=== PATIENT | female | born 1950 | race Caucasian/White ===

== ENCOUNTER → 2017-02-21 | Outpatient (CLI) | payer MEDICARE, OTHER ==
--- NOTE | 2017-02-22 19:18 | Diagnostic Imaging Report ---
EXAMINATION: Digital Mammogram bilateral screening. INDICATION: Screening. COMPARISON: This study was compared to the prior exams of 11/24/2015 and 09/27/2014. At this time, there are no current complaints. The current study was also evaluated with a Computer Aided Detection (CAD) system. FINDINGS: The fibroglandular tissue in both breasts is dense. This does limit the sensitivity of this exam. On the MLO view of the right breast in the superior aspect of the breast, approximately 7 cm deep to the nipple, there is a strand of increased density. There is no corresponding abnormality seen on the craniocaudad view, and this finding is most likely secondary to superimposition of the fibroglandular tissue. Even so, I would recommend that a compression view of this area be obtained in the MLO projection as well as a true lateral view. If this density persists on the additional mammographic views, ultrasound may be necessary as well. The left breast is unchanged. IMPRESSION: Additional mammographic views of the right breast would be recommended. Ultrasound may also be necessary. ACR BI-RADS Category 0: Incomplete. (Needs additional imaging evaluation). Result letter will be mailed to the patient. Note: At least 10% of breast cancer is not imaged by mammography. Dictated by: Dictated on workstation # [id number]
== END ==
LOC: RAD 10:13
PROVIDERS: ATTEND Nurse Practitioner Family
DX: Z12.31 Encounter for screening mammogram for malignant neoplasm of breast (principal)
CPT/HCPCS: 77067

== ENCOUNTER → 2017-03-11 | Outpatient (CLI) | payer MEDICARE, OTHER ==
--- NOTE | 2017-03-11 09:17 | Diagnostic Imaging Report ---
Right breast diagnostic mammogram. The current study was also evaluated with a Computer Aided Detection (CAD) system. COMPARISON: 02/21/2017. FINDINGS: The breast parenchyma is heterogeneously dense which may decrease mammographic sensitivity. There are benign-appearing calcifications. No suspicious mass is seen. The previously seen asymmetry is evaluated with focal compression view which demonstrates less prominent asymmetry suggestive of summation artifact of parenchyma. IMPRESSION: The previously seen asymmetry in the upper aspect of the right breast is likely secondary to summation effect of parenchyma. Ultrasound evaluation is pending. ACR BI-RADS Category 0: Incomplete. (Needs additional imaging evaluation). Result letter will be mailed to the patient. Note: At least 10% of breast cancer is not imaged by mammography. Dictated by: Dictated on workstation # [id number]
--- NOTE | 2017-03-11 12:33 | Diagnostic Imaging Report ---
EXAM: Right breast ultrasound. INDICATION: Asymmetry along the upper aspect of the right breast. Dense breast parenchyma. TECHNIQUE: The four-quadrant retroareolar regions of the right breast were scanned. FINDINGS: At the 10 o'clock zone 7 cm from the nipple, there is a 1.3 cm lobulated hypoechoic lesion with wider than tall dimension and no internal vascularity seen. Another lesion at 6 o'clock zone, 2 cm from the nipple, measuring 1 cm with similar appearance is seen. These are from favored to be benign given the circumscribed appearance. It is possible that these represent prominent fat lobules or fibroadenomas. IMPRESSION: Likely benign lesions at 10 o'clock and at 6 o'clock zones. A 6 month followup right breast ultrasound is recommended to ensure stability. BI-RADS 3. ACR BI-RADS Category 3: Probably benign findings. Result letter will be mailed to the patient. Note: At least 10% of breast cancer is not imaged by mammography. Dictated by: Dictated on workstation # [id number]
== END ==
LOC: RAD 08:37
PROVIDERS: ATTEND Nurse Practitioner Family
DX: R92.2 Inconclusive mammogram (principal); R92.8 Other abnormal and inconclusive findings on diagnostic imaging of breast
CPT/HCPCS: 76641

== ENCOUNTER → 2017-08-30 | Outpatient (CLI) | payer MEDICARE, OTHER ==
--- NOTE | 2017-08-30 20:39 | Diagnostic Imaging Report ---
EXAM: Right breast ultrasound. INDICATION: Six month followup for lesions in the right breast. COMPARISON: 03/11/2017. FINDINGS: There is a hypoechoic nodule at the 10:00 o'clock zone, 7 cm from the nipple measuring 1.1 x 0.4 x 0.9 cm. No internal vascularity is seen. When compared to the previous exam, no significant changes are seen. At the 6:00 o'clock zone, 2 cm from the nipple, there is a hypoechoic lesion measuring 1.1 x 0.5 x 1 cm. It appears lobulated. It has slightly more heterogenous echogenicity within it and has a slightly different appearance compared to the previous exam. It is very minimally larger in measurements compared to the previous study. The findings could relate to different technique and the angle of imaging. IMPRESSION: Question of minimal enlargement in the 6:00 o'clock zone lesion with slight difference in appearance at this time. This is still favored to be benign however. Another followup in 6 months when the patient is due for her bilateral mammogram in February 2018 is recommended. BI-RADS 3. ACR BI-RADS Category 3: Probably benign findings. Result letter will be mailed to the patient. Note: At least 10% of breast cancer is not imaged by mammography. Dictated by: Dictated on workstation # [id number]
== END ==
LOC: RAD 09:46
PROVIDERS: ATTEND Nurse Practitioner Family
DX: R92.8 Other abnormal and inconclusive findings on diagnostic imaging of breast (principal)

== ENCOUNTER 2017-12-09 09:51 | Outpatient (CLI) | payer MEDICARE, OTHER ==
[~2017-12-09] VITALS: Ht 162.6 cm; Wt 107.5 kg
[2017-12-09 10:04] VITALS: BP 149/71
[2017-12-09] MEDS ORDERED: TRAM50TA2 PO (10:15)
[2017-12-09] MEDS ORDERED: CHOL20002 PO (10:15)
[2017-12-09] MEDS ORDERED: VITA1TAB33 PO (10:15)
[2017-12-09] MEDS ORDERED: ATOR10TA66 PO (10:15)
[2017-12-09] MEDS ORDERED: DULO30CA48 PO (10:15)
[2017-12-09] MEDS ORDERED: LISI-552 PO (10:15)
[2017-12-09 10:50] LABS: BASOPHILS % (AUTO) 1 % (0-10); EOSINOPHILS # (AUTO) 0.1 10^3/uL (0.0-0.3); EOSINOPHILS % (AUTO) 3 % (0-10); HEMATOCRIT 41 % (35-52); HEMOGLOBIN 13.9 G/DL (11.5-16.0); LYMPHOCYTES # (AUTO) 1.1 X 10^3 (1.0-4.0); LYMPHOCYTES % (AUTO) 28 % (12-44); MEAN CORPUSCULAR HEMOGLOBIN 28 PG (25-34); MEAN CORPUSCULAR HGB CONC 34 G/DL (32-36); MEAN CORPUSCULAR VOLUME 84 FL (80-99); MEAN PLATELET VOLUME 10.4 FL (7.4-10.4); MONOCYTES # (AUTO) 0.3 X 10^3 (0.0-1.0); MONOCYTES % (AUTO) 8 % (0-12); NEUTROPHILS # (AUTO) 2.5 X 10^3 (1.8-7.8); NEUTROPHILS % (AUTO) 60 % (42-75); PLATELET COUNT 152 10^3/uL (130-400); RED BLOOD COUNT 4.91 10^6/uL (4.35-5.85); RED CELL DISTRIBUTION WIDTH 15.2 % (10.0-14.5); WHITE BLOOD COUNT 4.1 10^3/uL (4.3-11.0)
[2017-12-09 10:51] LABS: BILIRUBIN,URINE NEGATIVE (NEGATIVE); CLARITY,URINE CLEAR; COLOR,URINE YELLOW; GLUCOSE, URINE (UA) NEGATIVE (NEGATIVE); KETONES,URINE NEGATIVE (NEGATIVE); LEUKOCYTE ESTERASE ,URINE 1+ (NEGATIVE); NITRITE,URINE NEGATIVE (NEGATIVE); PH,URINE 5 (5-9); PROTEIN,URINE NEGATIVE (NEGATIVE); UROBILINOGEN,URINE NORMAL (NORMAL)
[2017-12-09 11:10] LABS: PROTHROMBIN TIME PATIENT 13.4 SEC (12.2-14.7)
[2017-12-09 11:10] LABS: BACTERIA,URINE FEW /HPF
[2017-12-09 11:13] LABS: ALBUMIN 4.3 GM/DL (3.2-4.5); BILIRUBIN,TOTAL 0.7 MG/DL (0.1-1.0); CALCIUM 9.7 MG/DL (8.5-10.1); CREATININE SERUM 0.99 MG/DL (0.60-1.30); POTASSIUM 3.9 MMOL/L (3.6-5.0); TOTAL PROTEIN 7.5 GM/DL (6.4-8.2)
[2017-12-09 11:27] LABS: ERYTHROCYTE SEDIMENTATION RATE 17 MM/HR (0-30)
--- NOTE | 2017-12-09 11:49 | Diagnostic Imaging Report ---
INDICATION: Preop for total knee replacement. TIME OF EXAM: 11:10 AM FINDINGS: The heart size is normal. The lungs are clear. No pleural effusion or pneumothorax is identified. The pulmonary vascularity is normal. IMPRESSION: No acute abnormality detected. Dictated by: Dictated on workstation # [id number]
== END 2017-12-09 10:55 | disposition home or self-care (01) ==
LOC: PREOP 09:51
PROVIDERS: ATTEND Orthopaedic Surgery
DX: Z01.810 Encounter for preprocedural cardiovascular examination (principal); Z01.811 Encounter for preprocedural respiratory examination; Z01.812 Encounter for preprocedural laboratory examination; Z11.2 Encounter for screening for other bacterial diseases; M17.11 Unilateral primary osteoarthritis, right knee; R53.83 Other fatigue; R82.90 Unspecified abnormal findings in urine
CPT/HCPCS: 36415; 71046; 80053; 81000; 85025; 85610; 85652; 86850; 86900; 86901; 87081; 87088; 93005

== ENCOUNTER 2017-12-21 06:04 | Inpatient (IN) | payer MEDICARE, OTHER ==
--- NOTE | 2017-12-13 10:06 | HISTORY AND PHYSICAL ---
DATE OF SERVICE: DATE OF ADMISSION: 12/21/2017. HISTORY OF PRESENT ILLNESS: The patient is a 67-year-old female with complaints of progressively worsening right knee pain. She reports difficulty with standing. She reports difficulty with functional activities. She reports this has been progressive in nature. She has tried rest, activity modifications and anti-inflammatories without relief. Radiographs reveal severe medial patellofemoral arthrosis and due to failure to improve with conservative measures, the patient has elected to proceed with surgical intervention. REVIEW OF SYSTEMS: No chest pain, no shortness of breath, no dysuria. PAST MEDICAL HISTORY: Depression, hypertension, osteoarthritis. PAST SURGICAL HISTORY: Hysterectomy, cholecystectomy. FAMILY HISTORY: Significant for kidney disease, cancer. PRIMARY CARE PROVIDER: Dr. Rincon. MEDICATIONS: Vitamins, tramadol, Lipitor, Voltaren, lisinopril, Zoloft. ALLERGIES: No known drug allergies. SOCIAL HISTORY: The patient denies alcohol and tobacco use. PHYSICAL EXAMINATION: GENERAL: The patient is well developed, well-nourished, in no acute distress. HEENT: Normocephalic, atraumatic. Pupils are equal, round, reactive to light. Oropharynx is clear. NECK: Supple, no lymphadenopathy. LUNGS: Clear to auscultation bilaterally. HEART: Regular rate and rhythm. ABDOMEN: Soft, nontender, nondistended. EXTREMITIES: The right knee demonstrates mild varus alignment. No skin lesions are noted. She has negative straight leg raise. Sensation is intact throughout. She has no varus valgus laxity. Negative anterior and posterior drawer. Range of motion 0/3/125. She has slight effusion. She has marked tenderness along the medial joint line with crepitus in her patellofemoral joint space. She ambulates with an antalgic gait. IMPRESSION: Right knee severe osteoarthritis, unresponsive to conservative measures. PLAN: Right total knee arthroplasty. The risks, benefits, options, ramifications and recovery had been discussed at length with the patient. She understands and wishes to proceed. Job ID: [id number] DocumentID: [id number] Dictated Date: 12/13/2017 09:21:40 Lunchroom Aide Date: 12/13/2017 09:58:58 Dictated By: MYRON JACOB MD
[~2017-12-21] VITALS: Ht 162.6 cm; Wt 107.5 kg
[~2017-12-21 06:04] MED LIST: ATOR10TA66 PO; CHOL20002 PO; DULO30CA48 PO; LISI-552 PO; TRAM50TA2 PO; VITA1TAB33 PO
[2017-12-21] MEDS ORDERED: ONDANSETRON 4 MG/2 ML (SDV) Z0FRAN ONE (06:30)
[2017-12-21] MEDS ORDERED: fentaNYL INJECTION 100 MCG/2 ML AMP ONE ×2 (06:30→08:02)
[2017-12-21] MEDS ORDERED: proPOfol 200 MG/20 ML (DIPRIVAN) VIAL IV ONE (06:30)
[2017-12-21] MEDS ORDERED: DEXAMETHASONE 10 MG/ML (DECADRON) 1 ML VIAL ONE (06:30)
[2017-12-21] MEDS ORDERED: MIDAZOLAM 2 MG/2 ML (VERSED) VIAL ONE (06:30)
[2017-12-21] MEDS ORDERED: LIDOCAINE PF 2% 5 ML (XYLOCAINE) VIAL ONE (06:30)
[2017-12-21] MEDS ORDERED: SEVOFLURANE (ULTANE) 15 ML INHAL SOLN ONE ×6 (06:30→08:50)
[2017-12-21] MEDS ORDERED: CEFUROXIME 1.5 GM (ZINACEF) VIAL ONE (06:31)
[2017-12-21] MEDS ORDERED: NS (IVPB) 50 ML ONE (06:32)
[2017-12-21] MEDS ORDERED: ATRACURIUM 50 MG/5 ML (TRACRIUM) IV ONE (06:47)
[2017-12-21] MEDS: LACTATED RINGERS 1,000 ML IV PRN ×3 (06:57→09:05)
[2017-12-21] MEDS ORDERED: CEFUROXIME IV ONE (07:00)
[2017-12-21] MEDS ORDERED: D5W IV ONE (07:00)
[2017-12-21] MEDS ORDERED: CATHETER FLUSH 10 ML SYR IV PRN (07:00)
[2017-12-21] MEDS ORDERED: CEFUROXIME 1.5 GM/NS 50 ML IVPB IV ONE ×2 (07:00)
[2017-12-21 07:06] VITALS: BP 139/80
--- NOTE | 2017-12-21 07:28 | Progress Note-Pre Operative ---
Pre-Operative Progress Note H&P Reviewed The H&P was reviewed, patient examined and no changes noted. Date Seen by Provider: Dec 21, 2017 Time Seen by Provider: 07:20 Date H&P Reviewed: Dec 21, 2017 Time H&P Reviewed: 07:11 Pre-Operative Diagnosis: right knee primary osteoarthritis MYRON JACOB MD Dec 21, 2017 07:28
--- NOTE | 2017-12-21 07:29 | Progress Note-Post Operative ---
Post-Operative Progess Note Surgeon (s)/Superintendent Factory (s) Surgeon MYRON JACOB MD Superintendent Factory: Nicholas Conklin Pre-Operative Diagnosis right knee primary osteoarthritis Post-Operative Diagnosis right knee primary osteoarthritis Procedure & Operative Findings Date of Procedure 12/21/17 Procedure Performed/Findings right total knee arthroplasty Anesthesia Type GETA Estimated Blood Loss Estimated blood loss (mL): 300 ml Specimens/Packing Specimens Removed none Packing: none MYRON JACOB MD Dec 21, 2017 07:29
[2017-12-21] MEDS ORDERED: INTRA-ARTICULAR IU ONE ×5 (07:30)
[2017-12-21] MEDS ORDERED: diphenhydrAMINE 50 MG/ML INJ (BENADRYL) IVP PRN (07:30)
[2017-12-21] MEDS ORDERED: ACETAMINOPHEN 325 MG TABLET/CAPLET (TYLENOL) PO PRN (07:30)
[2017-12-21] MEDS ORDERED: OXYC-197 PO (07:31)
--- NOTE | 2017-12-21 07:33 | D/C HH Face to Face Order ---
D/C Face to Face Orders Instructions for Patient Patient Instructions/FollowUp: three weeks Physician to follow Patient: in three weeks Discharge Diet for Home: Regular Diet Patient Data-Allergies,Ht & Wt Patient Allergies: Coded Allergies: No Known Drug Allergies (Unverified , 12/09/17) Height (Feet): 5 Height (Inches): 4.00 Weight (Pounds): 237 Weight (Ounces): 0.0 Home Health Need/Face to Face Date of Face to Face: Dec 21, 2017 Clinical Findings: Instability, Muscle weakness, Non or partial weight bearing , Unsteady gait I have seen Pt [id number]: Yes Discharged To: Home Diagnosis/Conditions: right total knee arthroplasty Problems/Diagnosis/Condition: Patient is Homebound due to: Ellie fall risk due to instabilty, Muscle weakness , Pain w/ambulation Homebound Status Due to the above stated illness, injury or surgical procedure (medical condition or diagnosis) and associated clinical findings, the patient is homebound because of his/her inability to leave home except with aid of a supportive device and/or person AND leaving the home requires a considerable and taxing effort or is medically contraindicated. Pt req the following assistanc: Walker Home Health Nursing Orders Home Health Services Order: Physical Therapy-Evaluate & Treat Home Health Infusion Therapy Line Start Date: Dec 21, 2017 Line Start Time: 0630 Site Location: Forearm Therapy Orders Therapy Orders: Physical Therapy, PT to assess for OT Therapy Specific Orders: Eval assistive deivces, Teach enviro modifications/ safety, Gait training, Increase strength/endurance, Restore ROM Certify Stmt I certify that this patient is under my care and that I, a nurse practitioner or a physician; a elder assistant working with me, had a face to face encounter that - meets the physician face to face encounter requirements with this patient as dated. MYRON JACOB MD Dec 21, 2017 07:33
[2017-12-21] MEDS ORDERED: morphine INJ 10 MG/ML 1ML (SYR OR VIAL) ONE (09:06)
[2017-12-21] MEDS ORDERED: HYDROmorphone (DILAUDID) 2 MG/ML VIAL ONE (09:24)
[2017-12-21] MEDS: HYDROmorphone (DILAUDID) 2 MG/ML VIAL IVP PRN ×4 (09:25→09:50)
[2017-12-21] MEDS: morphine INJ 10 MG/ML 1ML (SYR OR VIAL) IVP PRN ×2 (09:32→09:36)
--- NOTE | 2017-12-21 10:06 | Diagnostic Imaging Report ---
Indication: Postop right knee arthroplasty. TIME OF EXAM: 9:45 AM FINDINGS: Two views of the right knee demonstrate postop changes of total knee arthroplasty. Prosthetic elements are in good position. No fracture or loosening is seen. Overlying skin torsten are noted. IMPRESSION: Satisfactory postop right knee. Dictated by: Dictated on workstation # [id number]
--- NOTE | 2017-12-21 10:11 | Progress Note-Standard ---
Standard Progress Note Progress Notes/Assess & Plan Date Seen by Provider: Dec 21, 2017 Time Seen by Provider: 10:10 Progress/Assessment & Plan post op check no complaints. denies paresthesias radiographs--HW well positioned without fracture RLE--2 plus DP pulse with brisk cap refill. intact DF and PF of toes and ankle with sensation intact throughout s/p RTKA mobilize as able Final Diagnosis right knee primary osteoarthritis MYRON JACOB MD Dec 21, 2017 10:11
[2017-12-21] MEDS ORDERED: ONDANSETRON 4 MG/2 ML (SDV) Z0FRAN IVP PRN (10:15)
[2017-12-21 11:00] VITALS: BP 123/59
[2017-12-21] MEDS: morphine PCA 30 MG/30 ML VIAL IV PRN (11:01)
[2017-12-21] MEDS: ONDANSETRON 4 MG/2 ML (SDV) Z0FRAN IVP PRN ×2 (11:48→15:29)
[2017-12-21] MEDS: NS IV 1000 ML 1,000 ML IV SCH ×2 (11:53→15:29)
[2017-12-21] MEDS: SENNA W/DOCUSATE (SENOKOT S) TABLET PO SCH ×2 (11:53→20:06)
--- NOTE | 2017-12-21 15:29 | Physical Therapy Evaluation ---
PT Evaluation-General Medical Diagnosis Admission Date Dec 21, 2017 at 06:04 Medical Diagnosis: R TKA Onset Date: Dec 21, 2017 Therapy Diagnosis Therapy Diagnosis: Poor activity tolerance, ROM, weakness, mobility Height/Weight Height (Feet): 5 Height (Inches): 4.00 Weight (Pounds): 237 Weight (Ounces): 0.0 Precautions Precautions/Isolations: Fall Prevention, Standard Precautions Weight Bear Status Right Lower Extremity: Right Full Weight Bearing Left Lower Extremity: Left Full Weight Bearing Referral Physician: Nicholas Conklin Reason for Referral: Evaluation/Treatment Medical History Pertinent Medical History: HTN, OA Additional Medical History Depression Surgery: hysterectomy, cholecystectomy Current History Pt elected to receive R TKA. Reviewed History: Yes Social History Home: Single Level Current Living Status: Spouse Entry Into Home: Stairs With Railing PT Steps Into Home: 2 Prior/Core FIM Prior Level of Function Functional [place] Measure 0=Not Assessed/NA 4=Minimal Assistance 1=Total Assistance 5=Supervision or Setup 2=Maximal Assistance 6=Modified [place] 3=Moderate Assistance 7=Complete [place] Bed Mobility: 7 Transfers (B,C,W/C) (FIM): 7 Gait: 7 Locomotion: 7 PT Evaluation-Current Subjective Pt is laying in bed pre eval and c/o pain at 10/10 with no visual signs of distress. Pt agrees to PT. Pain Numeric Pain Scale: 10-Worst Possible Pain Location: Right Location Body Site: Knee Pt/Family Goals [place] at home Objective Patient Orientation: Person, Place, Situation Attachments: SCD's, Oxygen (4 L), Polar Pack, IV ROM/Strength ROM Lower Extremities RLE Knee flexion ~ 90 degrees, knee extension ~ 10 degrees from neutral Strength Lower Extremities NT Neuromuscular (Tone, Coordination, Reflexes) NT Sensory Vision: Wears Glasses Hearing: Functional Sensation Right Lower Extremit: Intact Sensation Left Lower Extremity: Intact Transfers Functional [place] Measure 0=Not Assessed/NA 4=Minimal Assistance 1=Total Assistance 5=Supervision or Setup 2=Maximal Assistance 6=Modified [place] 3=Moderate Assistance 7=Complete [place] Transfers (B, C, W/C) (FIM): 4 Scootin Rollin Supine to/from Sit: 4 Sit to/from Stand: 4 Patient performs supine to sit with min assist, sit to stand with CGA, patient needs cues for safety and hand placement Gait Mode of Locomotion: Walk Anticipated Mode of Locomotion: Walk Gait (FIM): 1 Distance: 20 feet Gait Level of Assist: 4 Gait Persons Needed: 1 Gait Assistive Device: FWW Comments/Gait Description Pt has diminished stance phase on the RLE due to pain and weakness. Step-to gait pattern even with cues, very antalgic. Patient got nauseated during ambulation and was able to make it back to the bed before vomiting. Balance Sitting Static: Normal Sitting Dynamic: Normal Standing Static: Normal Standing Dynamic: Normal Treatment Pt performed bed mobility, functional mobility, sensation testing, and gait training. RLE: SAQ: 10 x1, Ankle pumps: 10 x1, SLR: 10 x1, Heel slides: 10 x1 Assessment/Needs Pt reports pain at 10/10 with no visual signs of distress. Pt demonstrates decreased ROM in the R knee. Pt was able to walk 20 feet with FWW and CGA. Pt reported dizziness during immediate standing and sitting. Pt vomited after ambulating 20 feet. Pt incision site bandage is saturated with blood. Nurse has been notified. Pt demonstrated knowledge and tolerance of LE exercises. Pt returned to laying in bed with SCDs and CPM on as well as O2 and polar care. Rehab Potential: Fair Equipment Needs FWW PT Short Term Goals Short Term Goals Time Frame: Dec 28, 2017 Transfers (B,C,W/C) (FIM): 5 Gait (FIM): 2 Gait Distance Comment: 50' Gait Level of Assist: 4 Gait Assistive Device: FWW PT Plan Problem List Problem List: Activity Tolerance, Functional Strength, Safety, Balance, Gait, Transfer, Bed Mobility, ROM Treatment/Plan Treatment Plan: Continue Plan of Care Treatment Plan: Bed Mobility, Education, Functional Activity [place], Functional Strength, Gait, Safety, Therapeutic Exercise, Transfers Treatment Duration: Dec 28, 2017 Frequency: 11 times per week Estimated Hrs Per Day: .25 hour per day (15-30 min) Patient and/or Family Agrees t: Yes Safety Risks/Education Patient Education: Gait Training, Transfer Techniques, Reviewed Precautions, Reviewed Use of Ice, Correct Positioning, Disease Process, Safety Issues Teaching Recipient: Patient Teaching Methods: Demonstration, Discussion Response to Teaching: Reinforcement Needed Discharge Recommendations Plan Patient will perform bed mobility and transfer training, balance and endurance training, functional strengthening, stair training, gait training, and education , to improve functional mobility and independence at home. Therapy D/C Recommendations: Home w/ Family Support Equpiment Recommendations-D/C: Front Wheeled Walker Time/GCodes Time In: 1500 Time Out: 1530 Total Billed Treatment Time: 30 Total Billed Treatment 1 visit CHRISTOPHER 15' GT 15' LIZETT CASIANO PT Dec 21, 2017 15:29
[2017-12-21 15:55] VITALS: BP 113/52
[2017-12-21] MEDS: CEFUROXIME INJECTION 750 MG in NS (IVPB) 50 ML IV SCH ×2 (16:02→22:55)
--- NOTE | 2017-12-21 19:21 | OPERATIVE REPORT ---
DATE OF SERVICE: 12/21/2017 PREOPERATIVE DIAGNOSIS: Right knee primary osteoarthritis. POSTOPERATIVE DIAGNOSIS: Right knee primary osteoarthritis. PROCEDURE: Right total knee arthroplasty. SURGEON: Boogie Jacob MD. ACADEMIC AFFAIRS DEAN: SHORTY Reeves, who assisted throughout the procedure and closed the incisions. ANESTHESIA: General endotracheal by Dr. Calle. TOURNIQUET TIME: Approximately 70 minutes at 325 mmHg. ESTIMATED BLOOD LOSS: 300 mL. DRAINS: None. COMPLICATIONS: None. POSTOPERATIVE PLAN: Routine protocol. MATERIALS: MicroPort cemented size 4 femur with a cemented size 5 tibia and a 14 mm insert and a cemented size 32 patellar button. STATEMENT OF MEDICAL NECESSITY: The patient is a 67-year-old female with longstanding progressive right knee pain. Radiographs revealed severe medial and patellofemoral arthrosis. She has undergone treatment with extensive conservative modalities without relief and due to functional impairment and failure to improve with conservative measures, the patient elected to proceed with surgical intervention. DESCRIPTION OF PROCEDURE: After risks and benefits of the procedure were discussed and questions were answered, an informed consent was signed and placed on chart. The operative site was confirmed in the preoperative holding area initialed by surgeon. The patient was then transported to the operating room. General endotracheal anesthetic was obtained. A timeout was called confirming the operative site. The left lower extremity was then prepped and draped in the usual sterile fashion with the leg elevated and the knee flexed. The tourniquet was inflated to 300 mmHg. A standard anterior approach was utilized. Hemostasis was obtained with cautery. A medial parapatellar arthrotomy was performed leaving 1 cm cuff on the patella for later reattachment. The ACL was resected and a portion of the fat pad was resected. A subperiosteal release was performed on the proximal medial tibia being careful to stay on the bony surface. Intramedullary guide was passed into the femur. The distal cutting block was placed and distal cut was made. There was noted to be bleeding and her blood pressure was noted to be 155 mmHg systolic. Therefore, the tourniquet was inflated to 325 mmHg, which decreased the bleeding. The 4 cutting block was placed parallel to the epicondylar axis and cuts were made from posterior to anterior. A subperiosteal release was then carefully performed on the posterior distal femur, being careful to stay on the bony surface. Intramedullary guide was then passed into the tibia. The cutting block was placed. The drop tristen transected the intermalleolar axis and the cut was made. The 5 baseplate was placed, pinned into position. The drop tristen transected the intermalleolar axis. This was prepared with the drill and keel punch. The 4 femoral trial was placed and the trochlear cut was made. The patella was then prepared using the free hand technique by resecting 10 mm off the undersurface and the peg guide was placed and the peg holes were drilled. The trials were inserted, 32 mm patellar button with a 14 mm tibial insert provided full extension. The patella tracked well. There was no varus/valgus laxity in flexion or extension. Greater than 120 degrees of flexion was obtained with gravity. Her flexion was blocked by her posterior thigh soft tissues. The trials were removed. The joint was irrigated with pulse lavage. The periarticular block was placed and the posterior capsule, medial and lateral retinaculum and extensor mechanism as well as the subcutaneous tissues. The joint was further irrigated with pulse lavage. Bone ends were irrigated and dried. The tibial baseplate was cemented into position. Excessive cement was removed. The superior surface was irrigated and dried. The polyethylene insert was placed. The distal femur was irrigated and dried. The femoral prosthesis was cemented into position. Excessive cement was removed. The knee was brought out in full extension until the cement cured. The undersurface of the toes irrigated and dried. The patellar button was cemented into position as well. Once the cement had cured, knee was taken through range of motion. The patella tracked well. Full extension was easily obtained, 120 degrees of flexion with gravity was easily obtained. There was trace anterior drawer, negative posterior drawer. No varus valgus laxity in flexion or extension. The joint was further irrigated with pulse lavage. The arthrotomy was closed with #2 [place] in [id number] interrupted fashion. The knee was flexed. The patella tracked well with no undue tension. At the repair site, subcutaneous tissues were irrigated using a total of 6 liters throughout the procedure. A 0 Vicryl was used for deep subcutaneous tissue, 2-0 Vicryl for the superficial subcutaneous tissue, torsten used on the skin. A soft dressing was applied. The tourniquet was deflated. The patient was transferred to the recovery room awake in stable condition. Job ID: [id number] DocumentID: [id number] Dictated Date: 12/21/2017 09:21:46 Camera Repairman Date: 12/21/2017 19:21:16 Dictated By: BOOGIE JACOB MD
[2017-12-21 20:00] VITALS: BP 125/56
[2017-12-21] MEDS: oxyCODONE/APAP 5/325MG (PERCOCET 5) TABLET PO PRN (22:55)
[2017-12-22] VITALS: BP 153/71
[2017-12-22] MEDS: oxyCODONE/APAP 5/325MG (PERCOCET 5) TABLET PO PRN ×8 (02:17→20:20)
[2017-12-22] MEDS: morphine PCA 30 MG/30 ML VIAL IV PRN (02:18)
[2017-12-22 04:00] VITALS: BP 146/70
[2017-12-22] MEDS: MULTIVIT W/MINERALS TAB (THERAGRAN M) PO SCH (05:30)
[2017-12-22] MEDS: NS IV 1000 ML 1,000 ML IV SCH ×2 (05:31→17:50)
[2017-12-22 07:01] LABS: HEMOGLOBIN 9.8 G/DL (11.5-16.0)
--- NOTE | 2017-12-22 07:55 | Progress Note-Standard ---
Standard Progress Note Progress Notes/Assess & Plan Date Seen by Provider: Dec 22, 2017 Time Seen by Provider: 07:53 Progress/Assessment & Plan post op check no complaints. denies paresthesias radiographs--HW well positioned without fracture RLE--2 plus DP pulse with brisk cap refill. intact DF and PF of toes and ankle with sensation intact throughout s/p RTKA mobilize as able Final Diagnosis No new complaints Vital Signs Date Time Temp Pulse Resp B/P (MAP) Pulse Ox O2 Delivery O2 Flow Rate FiO2 12/22/17 04:00 98.2 64 18 146/70 (95) 99 Nasal Cannula 2.00 12/22/17 02:43 92 Nasal Cannula 2.00 12/22/17 02:18 20 12/22/17 02:18 20 12/22/17 00:00 97.3 77 17 153/71 (98) 99 Nasal Cannula 4.00 12/21/17 21:25 Nasal Cannula 4.00 12/21/17 20:10 97 Nasal Cannula 4.00 12/21/17 20:00 96.8 69 20 125/56 (79) 95 Nasal Cannula 4.00 12/21/17 15:55 96.6 84 18 113/52 (72) 93 Nasal Cannula 4.00 12/21/17 15:48 Nasal Cannula 2.00 12/21/17 11:01 16 12/21/17 11:00 96.1 84 20 123/59 (80) 91 Nasal Cannula 4.00 12/21/17 10:45 97 Nasal Cannula 2.00 I & O 12/22/17 07:00 Intake Total 4290 ml Output Total 550 ml Balance 3740 ml Laboratory Tests Test 12/22/17 06:46 Range/Units Hemoglobin 9.8 L 11.5-16.0 G/DL Hematocrit 30 L 35-52 % RLE--dressing intact. NVI distally. No calf tenderness. Neg Des's s/p RTKA doing well mobilize MYRON JACOB MD Dec 22, 2017 07:55
[2017-12-22 08:15] VITALS: BP 109/55
[2017-12-22] MEDS ORDERED: ASPIRIN E.C. 81 MG (ECOTRIN) TAB PO SCH (08:15)
--- NOTE | 2017-12-22 08:39 | Consultation ---
History of Present Illness History of Present Illness Patient Consulted On(aury/time) 12/22/17 08:39 Date Seen by Provider: Dec 22, 2017 Time Seen by Provider: 08:50 Reason for Visit: RIGHT KNEE ARTHRITIS - HOSPITALIZED FOR KNEE REPLACEMENT History of Present Illness PT IS A 67 Y/O FEMALE WHO IS KNOWN TO ME FROM CLINIC. SHE PRESENTED TO THE HOSPITAL FOR A PLANNED RIGHT KNEE REPLACEMENT WITH DR. JACOB SURGEON. SHE HAD HER KNEE REPLACEMENT ON 12/21/17. SHE STATES THAT THIS MORNING SHE IS DOING FAIRLY WELL, A LITTLE GROGGY/DIZZY FROM HER PAIN MEDICATION, BUT SHE THINKS THAT THE PAIN MEDICATION IS HELPING TO COVER HER PAIN FAIRLY WELL. SHE REPORTS GETTING UP WITH PHYSICAL THERAPY AND WALKING IN HER ROOM AND GETTING UP AND DOWN FROM THE BED TO THE COMMODE AND TO THE BEDSIDE CHAIR. SHE DENIES CHEST PAIN, SHORTNESS OF BREATH, ABDOMINAL PAIN, NAUSEA, CONSTIPATION , HEADACHE, URINARY DIFFICULTY. Allergies and Home Medications Allergies Coded Allergies: No Known Drug Allergies (Unverified , 12/09/17) Home Medications Atorvastatin Calcium 10 Mg Tablet, 10 MG PO HS, (Reported) B Complex with Vitamin C 1 Each Tablet, 1 EACH PO DAILY@1200, (Reported) Cholecalciferol (Vitamin D3) 2,000 Unit Capsule, 2,000 UNIT PO HS, (Reported) Duloxetine HCl 30 Mg Capsule.dr, 30 MG PO HS, (Reported) Lisinopril 20 Mg Tablet, 20 MG PO HS, (Reported) Oxycodone HCl/Acetaminophen 1 Each Tablet, 1 EACH PO Q4H, #60 Prescribed by: MYRON JACOB on 12/21/17 0731 Tramadol HCl 50 Mg Tablet, 50-100 MG PO Q6H PRN for PAIN-MILD, (Reported) take 1-2 (50mg) tabs Past Vfssbep-Ctyaun-Plzjpr Hx Patient Social History Alcohol Use: Denies Use Recreational Drug Use: No Smoking Status: Never a Smoker 2nd Hand Smoke Exposure: No Recent Foreign Travel: No Contact w/Someone Who Travel: No Recent Infectious Disease Expo: No Recent Hopitalizations: No Immunizations Up To Date Date of Influenza Vaccine: Nov 08, 2017 Seasonal Allergies Seasonal Allergies: No Surgeries History of Surgeries: Yes Respiratory History of Respiratory Disorde: No Cardiovascular History of Cardiac Disorders: Yes Cardiac Disorders: High Cholesterol, Hypertension Neurological History of Neurological Disord: No Reproductive System : No Hx Reproductive Disorders: No HIV/AIDS: No Female 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 Genitourinary History of Genitourinary Disor: Yes (URINE LEAKAGE) Gastrointestinal History of Gastrointestinal Di: No Musculoskeletal History of Musculoskeletal Dis: Yes Musculoskeletal Disorders: Arthritis Endocrine History of Endocrine Disorders: No HEENT History of HEENT Disorders: Yes (GLASSES, DENTURES) Loss of Vision: Bilateral Hearing Impairment: Denies Cancer History of Cancer: No Psychosocial History of Psychiatric Problem: Yes Behavioral Health Disorders: Depression Integumentary History of Skin or Integumenta: No Blood Transfusions History of Blood Disorders: No Reviewed Nursing Assessment Reviewed/Agree w Nursing PMH: Yes Family Medical History Significant Family History: Heart Disease, Cancer Family Medial History: Myocardial infarction 19 MOTHER Respiratory disorder 19 FATHER (lung cancer) G8 BROTHER (lung cancer) Review of Systems-General Constitutional: No chills, dizziness, No fever, No malaise, weakness EENTM: No mouth pain, No throat pain Respiratory: No cough, No dyspnea on exertion, No short of breath Cardiovascular: No chest pain, No edema, No palpitations Gastrointestinal: No abdominal pain, No constipation, No diarrhea, No nausea, No vomiting Genitourinary: No frequency Musculoskeletal: No back pain, other (RIGHT KNEE PAIN) Skin: no symptoms reported Psychiatric/Neurological: Denies Anxiety, Depressed All Other Systems Reviewed Negative Unless Noted: Yes Physical Exam-General Problems Physical Exam Vital Signs Vital Sign - Last 12Hours 12/21/17 12/21/17 07:06 10:45 Temp 97.1 Pulse 77 Resp 16 B/P (MAP) 139/80 (99) Pulse Ox 97 O2 Delivery Room Air O2 Flow Rate 2.00 Capillary Refill : General Appearance: WD/WN, no apparent distress Eyes: Bilateral Eye Normal Inspection, Bilateral Eye PERRL, Bilateral Eye EOMI HEENT: PERRL/EOMI, pharynx normal Neck: non-tender, supple Respiratory: chest non-tender, lungs clear, normal breath sounds, no respiratory distress, no accessory muscle use Cardiovascular: regular rate, rhythm, no edema Gastrointestinal: normal bowel sounds, non tender, soft, no organomegaly, no pulsatile mass Back: normal inspection Extremities: no pedal edema, other (RIGHT KNEE WITH SURGICAL DRESSING IN PLACE , BLOOD ON DRESSING, POLAR PACK IN PLACE) Neurologic/Psychiatric: veneer taping machine offbearer II-XII nml as tested, alert, normal mood/affect, oriented x 3 Skin: warm/dry Lymphatic: no adenopathy Assessment/Plan Assessment/Plan Admission Diagnosis/Plan RIGHT KNEE OSTEOARTHRITIS RIGHT KNEE PAIN HYPERTENSION HYPERLIPIDEMIA DEPRESSION RIGHT KNEE OSTEOARTHRITIS AND RIGHT KNEE PAIN - PT IS POST OP DAY #1 - PT DOING WELL WITH THERAPY - CONTINUE WITH THE PLANS FOR TWO MORE DAYS OF HOSPITALIZATION AND DISCHARGE ON TUESDAY WITH HOME HEALTH. HYPERTENSION - RESUME LISINOPRIL, MONITOR BLOOD PRESSURE HYPERLIPIDEMIA - STABLE, RESUME HOME STATIN THERAPY. DEPRESSION -CHRONIC - SITUATIONAL - CONTINUE WITH CYMBALTA FOR TREATMENT OF DEPRESSION. DVT PROPHYLAXIS WITH LOVENOX ANEMIA - CHECK CBC TOMORROW THANK YOU FOR THE CONSULTATION. Clinical Quality Measures DVT/VTE Risk/Contraindication: Risk Factor Score Per Nursin RFS Level Per Nursing on Admit: 4+=Very High NIRMALA RAMIRES MD Dec 22, 2017 08:39
[2017-12-22] MEDS: SENNA W/DOCUSATE (SENOKOT S) TABLET PO SCH ×2 (08:55→20:20)
[2017-12-22] MEDS: ENOXAPARIN 30 MG/0.3 ML (LOVENOX) SYR SC SCH ×2 (08:55→20:19)
--- NOTE | 2017-12-22 09:48 | Physical Therapy Daily Note ---
PT Daily Note-Current Subjective Patient c/o 5/10 right knee pain at rest. RN just issued pain medication at 745. Pain Numeric Pain Scale: 5-Moderate Pain Location: Right Location Body Site: Knee Pain Description: Acute Mental Status Patient Orientation: Normal For Age Attachments: IV Transfers Functional [place] Measure 0=Not Assessed/NA 4=Minimal Assistance 1=Total Assistance 5=Supervision or Setup 2=Maximal Assistance 6=Modified [place] 3=Moderate Assistance 7=Complete IndependenceIRFPAI Quality Coding Scale 6 Independent with activity with or without an assistive device 5 Patient requires set up or clean up by helper. Patient completes activity by themselves 4 Supervision or touching assist (CGA). [place] provide cues , steadying assist 3 The helper provides less than half the effort to complete the activity 2 The helper provides more than half the effort to complete the activity 1 Dependent. The helper does all the effort to complete an activity 7 Patient refused to complete or attempt activity 9 The patient did not perform the activity before the current illness or injury 88 Not attempted due to Medical conditions or safety concerns Transfers (B, C, W/C) (FIM): 5 Scootin Sit to/from Stand: 5 Weight Bearing Right Lower Extremity: Right Full Weight Bearing Left Lower Extremity: Left Full Weight Bearing Gait Training Gait (FIM): 5 Distance (FIM): 3=150 ft Distance: 225' Gait Level of Assist: 5 Gait Assistive Device: FWW slow and antalgic Exercises Supine Ex: Ankle pumps, Quad Set, Heel Slides Supine Reps: 15 (with LE's elevated in recliner) Seated Therapy Exercises: Ankle pumps, Long arc quads Seated Reps: 15 Assessment Current Status: Excellent Progress Patient much improved on this date. PT will increase activity as tolerated by patient. Patient requested to remain up in recliner with polar pack in place. PT Short Term Goals Short Term Goals Time Frame: Dec 28, 2017 Transfers (B,C,W/C) (FIM): 5 Gait (FIM): 2 Gait Distance Comment: 50' Gait Level of Assist: 4 Gait Assistive Device: FWW PT Plan Treatment/Plan Treatment Plan: Continue Plan of Care Treatment Plan: Bed Mobility, Education, Functional Activity Davis, Functional Strength, Gait, Safety, Therapeutic Exercise, Transfers Treatment Duration: Dec 28, 2017 Frequency: 11 times per week Estimated Hrs Per Day: .25 hour per day (15-30 min) Patient and/or Family Agrees t: Yes Time/GCodes Time In: 845 Time Out: 910 Total Billed Treatment Time: 25 Total Billed Treatment 1 visit GT 10 min EX 15 min DEBBIE VELAZQUEZ PT Dec 22, 2017 09:48
[2017-12-22 12:00] VITALS: BP 106/53
--- NOTE | 2017-12-22 12:56 | Occupational Therapy Eval ---
OT Evaluation-General/PLF Medical Diagnosis Admission Date Dec 21, 2017 at 06:04 Medical Diagnosis: R TKA Onset Date: Dec 21, 2017 Therapy Diagnosis Therapy Diagnosis: DECR SELF CARE, DECR FUNCT MOBILITY Height/Weight Height (Feet): 5 Height (Inches): 4.00 Weight (Pounds): 237 Weight (Ounces): 0.0 Precautions Precautions/Isolations: Fall Prevention, Standard Precautions, Pressure Ulcer Safety Interventions: None Weight Bear Status Weight Bearing Restriction: Weight Bearing/Tolerated Referral Physician: Nicholas Conklin Referral Reason: Evaluation/Treatment Medical History Pertinent Medical History: Arthritis, HTN, OA Additional Medical History Depression. Urine leakage Current History Elective R total knee Social History Home: Single Level Current Living Status: Spouse Entry Into Home: Stairs With Railing Steps Into Home: 2 ADL-Prior Level of Function ADL PLOF Comments Pt reported that she has been able to manage her basic self care needs. 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 Pt reported that she was in pain in her R leg but did not rate or describe it. Appearance Sleepy Current Glasses/Contacts: Yes Dentures/Partials: Yes Hand Dominance: Right Upper Extremity ROM Grossly WFL bilat Upper Extremity Strength Grossly WFL bilat ADL-Treatment ADL-Current Per PT notes, pt walked 225" with SBA, FWW today. Functional [place] Measure 0=Not Assessed/NA 4=Minimal Assistance 1=Total Assistance 5=Supervision or Setup 2=Maximal Assistance 6=Modified [place] 3=Moderate Assistance 7=Complete IndependenceIRFPAI Quality Coding Scale 6 Independent with activity with or without an assistive device 5 Patient requires set up or clean up by helper. Patient completes activity by themselves 4 Supervision or touching assist (CGA). [place] provide cues , steadying assist 3 The helper provides less than half the effort to complete the activity 2 The helper provides more than half the effort to complete the activity 1 Dependent. The helper does all the effort to complete an activity 7 Patient refused to complete or attempt activity 9 The patient did not perform the activity before the current illness or injury 88 Not attempted due to Medical conditions or safety concerns Pt and education on transfer tub bench and bedside commode, to assist with bathing and toileting once she goes home. Showed pictures of equipment to and wrote info on white board. Pt educ modified technique for lower body dressing. pt left up in bed, all needs met. Education OT Patient Education: Modified ADL techniques, Purpose of tx/functional activities, Rehab process, Transfer techniques, Use of adapted equipment Teaching Recipient: Patient, Family Teaching Methods: Demonstration, Discussion Response to Teaching: Verbalize Understanding OT Chcf Goals Chcf Goals Time Frame: Dec 24, 2017 Bathing(FIM): 5 Upper Body Dressing(FIM): 5 Lower Body Dressing(FIM): 5 Toileting(FIM): 6 Toilet/Commode Transfer(FIM): 6 Shower Transfer(FIM): 5 Additional Goals: 1-Demonstrate ADL Tasks, 2-Verbalize Understanding, 3- ImproveStrength/Davis 1=Demonstrate adherence to instructed precautions during ADL tasks. 2=Patient will verbalize/demonstrate understanding of assistive devices/ modifications for ADL. 3=Patient will improve strength/tolerance for activity to enable patient to perform ADL's. OT Education/Plan Problem List/Assessment Assessment: Dependent Transfers, Impaired Self-Care Skills Pt would benefit from skilled OT to increase her independence in basic self care and to decrease caregiver burden Discharge Recommendations Plan/Recommendations: Continue POC Therapy D/C Recommendations: Occupational Therapy Home Care Treatment Plan/Plan of Care Treatment,Training & Education: Yes Patient would benefit from OT for education, treatment and training to promote independence in ADL's, mobility, safety and/or upper extremity function for ADL' s. Plan of Care: ADL Retraining, Functional Mobility Comment Pt anticipates Tuesday Treatment Duration: Dec 24, 2017 Frequency: 5 times per week Estimated Hrs Per Day: .25 hour per day Agreement: Yes Rehab Potential: Fair Time/GCodes Start Time: 11:30 Stop Time: 11:45 Total Time Billed (hr/min): 15 Billed Treatment Time visit, 15 minutes evaluation low intensity GLENN ARNDT OT Dec 22, 2017 12:56
--- NOTE | 2017-12-22 13:06 | Anesthesia-General Post-Op ---
General Patient Condition Mental Status/LOC: Same as Preop Cardiovascular: Satisfactory Nausea/Vomiting: Absent Respiratory: Satisfactory Pain: Controlled Complications: Absent Post Op Complications Complications None Follow Up Care/Instructions Patient Instructions None needed. Anesthesia/Patient Condition Patient Condition Patient is doing well, no complaints, stable vital signs, no apparent adverse anesthesia problems. No complications reported per nursing. D/C home per [facility] Criteria: No LEONIDES JENSEN CRNA Dec 22, 2017 13:06
--- NOTE | 2017-12-22 13:40 | Physical Therapy Daily Note ---
PT Daily Note-Current Subjective Patient has 10/10 right knee pain with pain pills and WIRE STRETCHER and she is heavily sedated with mumbling/slurring words and heavy eyes. Pain Numeric Pain Scale: 10-Worst Possible Pain Location: Right Location Body Site: Knee Pain Description: Acute Mental Status Patient Orientation: [place] Attachments: Polar Pack, IV CPM 0-66 degrees Transfers Functional [place] Measure 0=Not Assessed/NA 4=Minimal Assistance 1=Total Assistance 5=Supervision or Setup 2=Maximal Assistance 6=Modified [place] 3=Moderate Assistance 7=Complete IndependenceIRFPAI Quality Coding Scale 6 Independent with activity with or without an assistive device 5 Patient requires set up or clean up by helper. Patient completes activity by themselves 4 Supervision or touching assist (CGA). [place] provide cues , steadying assist 3 The helper provides less than half the effort to complete the activity 2 The helper provides more than half the effort to complete the activity 1 Dependent. The helper does all the effort to complete an activity 7 Patient refused to complete or attempt activity 9 The patient did not perform the activity before the current illness or injury 88 Not attempted due to Medical conditions or safety concerns Transfers (B, C, W/C) (FIM): 5 Scootin Weight Bearing Right Lower Extremity: Right Full Weight Bearing Left Lower Extremity: Left Full Weight Bearing Exercises Supine Ex: Ankle pumps, Quad Set, Heel Slides, Straight leg raise Supine Reps: 10 (2 sets) Assessment Patient too medicated for OOB activities safely. Exercises in bed and CPM placed with polar pack. PT Short Term Goals Short Term Goals Time Frame: Dec 28, 2017 Transfers (B,C,W/C) (FIM): 5 Gait (FIM): 2 Gait Distance Comment: 50' Gait Level of Assist: 4 Gait Assistive Device: FWW PT Plan Treatment/Plan Treatment Plan: Continue Plan of Care Treatment Plan: Bed Mobility, Education, Functional Activity Davis, Functional Strength, Gait, Safety, Therapeutic Exercise, Transfers Treatment Duration: Dec 28, 2017 Frequency: 11 times per week Estimated Hrs Per Day: .25 hour per day (15-30 min) Patient and/or Family Agrees t: Yes Time/GCodes Time In: 1255 Time Out: 1310 Total Billed Treatment Time: 15 Total Billed Treatment 1 visit EX 15 min DEBBIE VELAZQUEZ PT Dec 22, 2017 13:40
[2017-12-22 16:00] VITALS: BP 131/59
[2017-12-22 19:57] VITALS: BP 113/53
[2017-12-22] MEDS: ATORVASTATIN 10 MG (LIPITOR) TABLET PO SCH (20:19)
[2017-12-22] MEDS: DULoxetine 30 MG (CYMBALTA) CAP PO SCH (20:19)
[2017-12-22] MEDS: lisINopril 20 MG (ZESTRIL) TAB PO SCH (20:19)
[2017-12-23] VITALS: BP 139/62
[2017-12-23] MEDS: oxyCODONE/APAP 5/325MG (PERCOCET 5) TABLET PO PRN ×8 (00:03→23:36)
[2017-12-23 04:10] VITALS: BP 138/64
[2017-12-23] MEDS: MULTIVIT W/MINERALS TAB (THERAGRAN M) PO SCH (05:26)
[2017-12-23 06:46] LABS: HEMOGLOBIN 8.6 G/DL (11.5-16.0)
--- NOTE | 2017-12-23 06:53 | Progress Note-Standard ---
Standard Progress Note Progress Notes/Assess & Plan Date Seen by Provider: Dec 23, 2017 Time Seen by Provider: 06:51 Progress/Assessment & Plan post op check no complaints. denies paresthesias radiographs--HW well positioned without fracture RLE--2 plus DP pulse with brisk cap refill. intact DF and PF of toes and ankle with sensation intact throughout s/p RTKA mobilize as able Final Diagnosis No complaints Vital Signs Date Time Temp Pulse Resp B/P (MAP) Pulse Ox O2 Delivery O2 Flow Rate FiO2 12/23/17 05:54 18 12/23/17 04:10 97.4 82 18 138/64 (88) 94 Nasal Cannula 2.00 12/23/17 00:00 98.5 88 19 139/62 (87) 96 Nasal Cannula 2.00 12/22/17 22:49 Nasal Cannula 2.00 12/22/17 20:00 97 Nasal Cannula 2.00 12/22/17 19:57 98.6 89 20 113/53 (73) 96 Nasal Cannula 2.00 12/22/17 18:11 18 12/22/17 16:00 98.0 84 18 131/59 (83) 100 Nasal Cannula 2.00 12/22/17 12:00 96.9 86 20 106/53 (70) 97 Nasal Cannula 2.00 12/22/17 08:15 97.4 83 18 109/55 (73) 92 Nasal Cannula 2.00 12/22/17 08:15 97 Nasal Cannula 2.00 I & O 12/23/17 07:00 Intake Total 2040 ml Output Total 1200 ml Balance 840 ml Laboratory Tests Test 12/23/17 06:24 Range/Units Hemoglobin 8.6 L 11.5-16.0 G/DL Hematocrit 27 L 35-52 % RLE--incision clean and dry. No calf tenderness. Neg Des's. able to perform active knee extension s/p RTKA doing well continue PT/OT likely DC tomorrow MYRON JACOB MD Dec 23, 2017 06:53
[2017-12-23] MEDS ORDERED: morphine INJ 4 MG/ML 1 ML (VIAL/SYRINGE) IVP PRN (07:00)
[2017-12-23 08:00] VITALS: BP 109/52
[2017-12-23] MEDS: SENNA W/DOCUSATE (SENOKOT S) TABLET PO SCH ×2 (08:11→20:02)
[2017-12-23] MEDS: ENOXAPARIN 30 MG/0.3 ML (LOVENOX) SYR SC SCH ×2 (08:11→20:02)
[2017-12-23] MEDS: ASPIRIN E.C. 81 MG (ECOTRIN) TAB PO SCH (08:11)
--- NOTE | 2017-12-23 08:41 | Progress Note (SOAP) ---
Subjective Date Seen by Provider: Dec 23, 2017 Time Seen by Provider: 08:40 Subjective/Events-last exam PT REPORTS THAT SHE IS DOING WELL OTHER THAN HAVING PAIN IN HER KNEE AND CONSTIPATION SHE STATES THAT SHE CONTINUES TO WORK WITH PHYSICAL THERAPY - FEELS LIKE SHE IS MOVING AROUND FAIRLY WELL. Review of Systems General: Fatigue HEENT: No Head Aches Pulmonary: No Dyspnea, No Cough Cardiovascular: No: Chest Pain, Palpitations Gastrointestinal: Constipation, No: Nausea, Abdominal Pain Genitourinary: No Dysuria, No Frequency Musculoskeletal: leg pain (RIGHT KNEE AT SURGICAL SITE) Neurological: Weakness Objective Exam Vital Signs Date Time Temp Pulse Resp B/P (MAP) Pulse Ox O2 Delivery O2 Flow Rate FiO2 12/23/17 07:52 Nasal Cannula 2.00 12/23/17 05:54 18 12/23/17 04:10 97.4 82 18 138/64 (88) 94 Nasal Cannula 2.00 12/23/17 00:00 98.5 88 19 139/62 (87) 96 Nasal Cannula 2.00 12/22/17 22:49 Nasal Cannula 2.00 12/22/17 20:00 97 Nasal Cannula 2.00 12/22/17 19:57 98.6 89 20 113/53 (73) 96 Nasal Cannula 2.00 12/22/17 18:11 18 12/22/17 16:00 98.0 84 18 131/59 (83) 100 Nasal Cannula 2.00 12/22/17 12:00 96.9 86 20 106/53 (70) 97 Nasal Cannula 2.00 I & O 12/23/17 07:00 Intake Total 2040 ml Output Total 1200 ml Balance 840 ml Capillary Refill : General Appearance: No Apparent Distress, WD/WN HEENT: PERRL/EOMI, Pharynx Normal Neck: Full Range of Motion, Supple Respiratory: Chest Non Tender, Lungs Clear, Normal Breath Sounds Cardiovascular: Regular Rate, Rhythm Gastrointestinal: normal bowel sounds, non tender, soft Extremity: Pedal Edema Neurologic/Psychiatric: Alert, Oriented x3, No Motor/Sensory Deficits Skin: Warm/Dry, Other (SURGICAL SITE DRESSING IN PLACE C/D/I) Lymphatic: No Adenopathy Results Lab Laboratory Tests 12/23/17 06:24: Hemoglobin 8.6L, Hematocrit 27L Assessment/Plan Assessment/Plan Assess & Plan/Chief Complaint RIGHT KNEE OSTEOARTHRITIS RIGHT KNEE PAIN HYPERTENSION HYPERLIPIDEMIA DEPRESSION CONSTIPATION ANEMIA RIGHT KNEE OSTEOARTHRITIS AND RIGHT KNEE PAIN - PT IS POST OP DAY #2 - PT DOING WELL WITH THERAPY - CONTINUE WITH THE PLANS FOR TWO MORE DAYS OF HOSPITALIZATION AND DISCHARGE ON TUESDAY WITH HOME HEALTH. HYPERTENSION - RESUMEd LISINOPRIL, MONITOR BLOOD PRESSURE -BP A LITTLE LOW THIS MORNING, WILL MONITOR PRESSURES OVER THE WEEKEND. HYPERLIPIDEMIA - STABLE, RESUMED HOME STATIN THERAPY. DEPRESSION -CHRONIC - SITUATIONAL - CONTINUE WITH CYMBALTA FOR TREATMENT OF DEPRESSION. DVT PROPHYLAXIS WITH LOVENOX ANEMIA - LOWER TODAY - START IRON ORALLY - CHECK CBC TOMORROW CONSTIPATION - START ON DULCOLAX THANK YOU FOR THE CONSULTATION. Clinical Quality Measures DVT/VTE Risk/Contraindication: Risk Factor Score Per Nursin RFS Level Per Nursing on Admit: 4+=Very High NIRMALA RAMIRES MD Dec 23, 2017 08:41
[2017-12-23] MEDS ORDERED: FERROUS SULF 325 MG (IRON) TAB PO NR (09:50)
[2017-12-23] MEDS ORDERED: BISACODYL 10 MG SUPP (DULCOLAX) PR NR (10:00)
--- NOTE | 2017-12-23 10:12 | Physical Therapy Daily Note ---
PT Daily Note-Current Subjective Patient agrees to PT. Pain Numeric Pain Scale: 8 Location: Right Location Body Site: Knee Pain Description: Acute Mental Status Patient Orientation: Normal For Age Transfers Functional [place] Measure 0=Not Assessed/NA 4=Minimal Assistance 1=Total Assistance 5=Supervision or Setup 2=Maximal Assistance 6=Modified [place] 3=Moderate Assistance 7=Complete IndependenceIRFPAI Quality Coding Scale 6 Independent with activity with or without an assistive device 5 Patient requires set up or clean up by helper. Patient completes activity by themselves 4 Supervision or touching assist (CGA). [place] provide cues , steadying assist 3 The helper provides less than half the effort to complete the activity 2 The helper provides more than half the effort to complete the activity 1 Dependent. The helper does all the effort to complete an activity 7 Patient refused to complete or attempt activity 9 The patient did not perform the activity before the current illness or injury 88 Not attempted due to Medical conditions or safety concerns Transfers (B, C, W/C) (FIM): 5 Scootin Sit to/from Stand: 5 Weight Bearing Right Lower Extremity: Right Full Weight Bearing Left Lower Extremity: Left Full Weight Bearing Gait Training Gait (FIM): 5 Distance (FIM): 3=150 ft Distance: 225' x 2 Gait Level of Assist: 5 Gait Assistive Device: FWW trunk flexed posture/steady gait sequence Stair Training Stair Training: Handrails/: 1 handrail, uses walker Stairs (FIM): 1 #of Steps: 3 Stairs: Pattern: Step to Level of Assist: 4 Exercises Seated Therapy Exercises: Ankle pumps, Long arc quads, Hip flexion Seated Reps: 15 Assessment Patient continues to be lethargic due to medication. Patient did perform steps and is progressing. PT Short Term Goals Short Term Goals Time Frame: Dec 28, 2017 Gait (FIM): 2 Gait Distance Comment: 50' Gait Level of Assist: 4 Gait Assistive Device: FWW PT Plan Treatment/Plan Treatment Plan: Continue Plan of Care Treatment Plan: Bed Mobility, Education, Functional Activity Davis, Functional Strength, Gait, Safety, Therapeutic Exercise, Transfers Treatment Duration: Dec 28, 2017 Frequency: 11 times per week Estimated Hrs Per Day: .25 hour per day (15-30 min) Patient and/or Family Agrees t: Yes Time/GCodes Time In: 901 Time Out: 924 Total Billed Treatment Time: 23 Total Billed Treatment 1 visit EX 15 min GT 8 min DEBBIE VELAZQUEZ PT Dec 23, 2017 10:12
[2017-12-23 12:00] VITALS: BP 109/58
--- NOTE | 2017-12-23 13:27 | Physical Therapy Daily Note ---
PT Daily Note-Current Subjective Patient agrees to PT. Pain Numeric Pain Scale: 5-Moderate Pain Location: Right Location Body Site: Knee Pain Description: Acute Mental Status Patient Orientation: Normal For Age Transfers Functional [place] Measure 0=Not Assessed/NA 4=Minimal Assistance 1=Total Assistance 5=Supervision or Setup 2=Maximal Assistance 6=Modified [place] 3=Moderate Assistance 7=Complete IndependenceIRFPAI Quality Coding Scale 6 Independent with activity with or without an assistive device 5 Patient requires set up or clean up by helper. Patient completes activity by themselves 4 Supervision or touching assist (CGA). [place] provide cues , steadying assist 3 The helper provides less than half the effort to complete the activity 2 The helper provides more than half the effort to complete the activity 1 Dependent. The helper does all the effort to complete an activity 7 Patient refused to complete or attempt activity 9 The patient did not perform the activity before the current illness or injury 88 Not attempted due to Medical conditions or safety concerns Transfers (B, C, W/C) (FIM): 6 Scootin Rollin Supine to/from Sit: 6 Sit to/from Stand: 6 Weight Bearing Right Lower Extremity: Right Full Weight Bearing Left Lower Extremity: Left Full Weight Bearing Gait Training Gait (FIM): 6 Distance (FIM): 3=150 ft Distance: 250' Gait Level of Assist: 6 Gait Assistive Device: FWW antalgic Exercises Supine Ex: Ankle pumps, Quad Set, Heel Slides, Straight leg raise Supine Reps: 13 Seated Therapy Exercises: Ankle pumps, Long arc quads Seated Reps: 15 Treatments CPM 0-[address] Assessment Current Status: Excellent Progress Patient has performed steps and will dismiss to home with spouse tomorrow. PT Short Term Goals Short Term Goals Time Frame: Dec 28, 2017 Gait (FIM): 2 Gait Distance Comment: 50' Gait Level of Assist: 4 Gait Assistive Device: FWW PT Plan Treatment/Plan Treatment Plan: Continue Plan of Care Treatment Plan: Bed Mobility, Education, Functional Activity Davis, Functional Strength, Gait, Safety, Therapeutic Exercise, Transfers Treatment Duration: Dec 28, 2017 Frequency: 11 times per week Estimated Hrs Per Day: .25 hour per day (15-30 min) Patient and/or Family Agrees t: Yes Time/GCodes Time In: 1250 Time Out: 1315 Total Billed Treatment Time: 25 Total Billed Treatment 1 visit EX 14 min GT 11 min MARCUS,DEBBIE PT Dec 23, 2017 13:27
--- NOTE | 2017-12-23 13:53 | Occupational Ther Daily Note ---
OT Current Status-Daily Note Subjective Pt seen in room, up in bed, agreeable to OT. No pain mentioned Appearance A little groggy Mental Status/Objective Functional [place] Measure 0=Not Assessed/NA 4=Minimal Assistance 1=Total Assistance 5=Supervision or Setup 2=Maximal Assistance 6=Modified [place] 3=Moderate Assistance 7=Complete [place] ADL-Treatment Pt did not want to get up out of bed to practice using ADL equipment since she just got her CPM on. She has been going to the bathroom using the tall toilet and grab bar and said that it was working well for her. Reviewed ADL equipment with pt and spouse and also adapted techniques for ADLs. Pt will have home health PT and they will work with PT to make sure bathroom is arranged as needed. All questions answered to their satisfaction. Will DC OT with goals met to their satisfaction. Education OT Patient Education: Instructions to caregiver, Modified ADL techniques, Progress toward Goal/Update tx plan, Purpose of tx/functional activities, Safety issues, Transfer techniques, Use of adapted equipment Teaching Recipient: Patient, Family Teaching Methods: Discussion Response to Teaching: Verbalize Understanding OT Short Term Goals Short Term Goals 1=Demonstrate adherence to instructed precautions during ADL tasks. 2=Patient will verbalize/demonstrate understanding of assistive devices/ modifications for ADL. 3=Patient will improve strength/tolerance for activity to enable patient to perform ADL's. OT Detention Goals Concreting Supervisor Goals Time Frame: Dec 24, 2017 Bathing(FIM): 5 Upper Body Dressing(FIM): 5 Lower Body Dressing(FIM): 5 Toileting(FIM): 6 Toilet/Commode Transfer(FIM): 6 Shower Transfer(FIM): 5 Additional Goals: 1-Demonstrate ADL Tasks, 2-Verbalize Understanding, 3- ImproveStrength/Davis 1=Demonstrate adherence to instructed precautions during ADL tasks. 2=Patient will verbalize/demonstrate understanding of assistive devices/ modifications for ADL. 3=Patient will improve strength/tolerance for activity to enable patient to perform ADL's. OT Education/Plan Problem List/Assessment Pt would benefit from skilled OT to increase her independence in basic self care and to decrease caregiver burden Discharge Recommendations Plan/Recommendations: Discharge/Goals Met Treatment Plan/Plan of Care Patient would benefit from OT for education, treatment and training to promote independence in ADL's, mobility, safety and/or upper extremity function for ADL' s. Plan of Care: ADL Retraining, Functional Mobility Treatment Duration: Dec 24, 2017 Frequency: 5 times per week Estimated Hrs Per Day: .25 hour per day Agreement: Yes Rehab Potential: Fair Time/GCodes Start Time: 13:20 Stop Time: 13:34 Total Time Billed (hr/min): 14 Billed Treatment Time visit, 14 minutes ADL GLENN ARNDT OT Dec 23, 2017 13:53
[2017-12-23] MEDS: FERROUS SULF 325 MG (IRON) TAB PO SCH (16:27)
[2017-12-23 16:37] VITALS: BP 114/57
[2017-12-23] MEDS: ATORVASTATIN 10 MG (LIPITOR) TABLET PO SCH (20:02)
[2017-12-23] MEDS: DULoxetine 30 MG (CYMBALTA) CAP PO SCH (20:02)
[2017-12-23] MEDS: lisINopril 20 MG (ZESTRIL) TAB PO SCH (20:02)
[2017-12-24] VITALS (8 sets, daily range): BP systolic 101–124; BP diastolic 55–69
[2017-12-24] MEDS: oxyCODONE/APAP 5/325MG (PERCOCET 5) TABLET PO PRN ×5 (06:02→15:39)
[2017-12-24] MEDS: MULTIVIT W/MINERALS TAB (THERAGRAN M) PO SCH (06:02)
[2017-12-24] MEDS: FERROUS SULF 325 MG (IRON) TAB PO SCH (06:03)
[2017-12-24 06:52] LABS: HEMOGLOBIN 7.6 G/DL (11.5-16.0)
[2017-12-24] MEDS: ENOXAPARIN 30 MG/0.3 ML (LOVENOX) SYR SC SCH (08:15)
[2017-12-24] MEDS: ASPIRIN E.C. 81 MG (ECOTRIN) TAB PO SCH (08:15)
[2017-12-24] MEDS: SENNA W/DOCUSATE (SENOKOT S) TABLET PO SCH (08:22)
--- NOTE | 2017-12-24 09:23 | Progress Note-Standard ---
Standard Progress Note Progress Notes/Assess & Plan Date Seen by Provider: Dec 24, 2017 Time Seen by Provider: 09:21 Progress/Assessment & Plan post op check no complaints. denies paresthesias radiographs--HW well positioned without fracture RLE--2 plus DP pulse with brisk cap refill. intact DF and PF of toes and ankle with sensation intact throughout s/p RTKA mobilize as able Final Diagnosis reports light headedness improved 88 % O2 on RA Vital Signs Date Time Temp Pulse Resp B/P (MAP) Pulse Ox O2 Delivery O2 Flow Rate FiO2 12/24/17 08:00 98.3 90 18 109/55 (73) 95 Nasal Cannula 2.00 12/24/17 00:05 94 Nasal Cannula 2.50 12/24/17 00:00 98.9 91 16 121/58 (79) 86 Room Air 12/23/17 20:00 Nasal Cannula 2.50 12/23/17 16:37 99.0 89 18 114/57 (76) 96 Nasal Cannula 2.50 12/23/17 12:00 98.0 86 16 109/58 (75) 97 Nasal Cannula 2.00 I & O 12/24/17 07:00 Intake Total 3400 ml Output Total 400 ml Balance 3000 ml Laboratory Tests Test 12/24/17 06:23 Range/Units Hemoglobin 7.6 L 11.5-16.0 G/DL Hematocrit 23 L 35-52 % RLE--incision benign. No calf tenderness. Neg Des's. Pos SLR s/p RTKA with 7.6 Hb and low O2 sat on RA will transfuse 2 units PRBC prior to DC plan to DC later today after transfusion and PT MYRON JACOB MD Dec 24, 2017 09:23
[2017-12-24] MEDS ORDERED: NS IV 500 ML 500 ML ONE (09:44)
--- NOTE | 2017-12-24 10:20 | Physical Therapy Daily Note ---
PT Daily Note-Current Subjective States that she is doing good and that she is going to be discharged home after she receives her blood. Pain Numeric Pain Scale: 0-No Pain Transfers Functional [place] Measure 0=Not Assessed/NA 4=Minimal Assistance 1=Total Assistance 5=Supervision or Setup 2=Maximal Assistance 6=Modified [place] 3=Moderate Assistance 7=Complete IndependenceIRFPAI Quality Coding Scale 6 Independent with activity with or without an assistive device 5 Patient requires set up or clean up by helper. Patient completes activity by themselves 4 Supervision or touching assist (CGA). [place] provide cues , steadying assist 3 The helper provides less than half the effort to complete the activity 2 The helper provides more than half the effort to complete the activity 1 Dependent. The helper does all the effort to complete an activity 7 Patient refused to complete or attempt activity 9 The patient did not perform the activity before the current illness or injury 88 Not attempted due to Medical conditions or safety concerns Transfers (B, C, W/C) (FIM): 4 Scootin Rollin Supine to/from Sit: 4 Sit to/from Stand: 4 Weight Bearing Right Lower Extremity: Right Full Weight Bearing Left Lower Extremity: Left Full Weight Bearing Gait Training Gait (FIM): 1 Distance (FIM): 1=up to 49 ft Distance: 20' Gait Level of Assist: 5 Gait Persons Needed: 1 Gait Assistive Device: FWW Exercises Supine Ex: LE Protocol Supine Reps: 20 Assessment Current Status: Excellent Progress The patient did well with all activities but she had some dizziness. PT Short Term Goals Short Term Goals Time Frame: Dec 28, 2017 Gait (FIM): 2 Gait Distance Comment: 50' Gait Level of Assist: 4 Gait Assistive Device: FWW PT Plan Treatment/Plan Treatment Plan: Continue Plan of Care Treatment Plan: Bed Mobility, Education, Functional Activity [place], Functional Strength, Gait, Safety, Therapeutic Exercise, Transfers Treatment Duration: Dec 28, 2017 Frequency: 11 times per week Estimated Hrs Per Day: .25 hour per day (15-30 min) Patient and/or Family Agrees t: Yes Time/GCodes Time In: 950 Time Out: 1015 Total Billed Treatment Time: 25 Total Billed Treatment 1, EX, GT G Codes Necessary: Yes KHLOE AGUILLON PT Dec 24, 2017 10:20
[2017-12-24] MEDS ORDERED: ASPI-983 PO (15:36)
--- NOTE | 2017-12-24 23:28 | DISCHARGE SUMMARY ---
DATE OF SERVICE: DIAGNOSES: 1. Right knee primary osteoarthritis. 2. Postoperative anemia secondary to surgical blood loss. 3. Depression. 4. Hypertension. PROCEDURES: 1. Right total knee arthroplasty. 2. Transfusion of 2 units of packed red blood cells. SUMMARY: The patient is a 67-year-old female, who underwent a right total knee arthroplasty on the day of admission. Postoperatively, she did well. She has attained independence status with physical therapy. Her wound was clean and dry. She had no calf tenderness. Negative Homans sign. She was tolerating diet well and tolerating pain with oral pain medication. Her hemoglobin; however, was 7.6 and the patient's room air oxygen saturation was 88%. The patient had had some lightheadedness the day prior to admission. Therefore, she was given 2 units of packed red blood cells. She will be discharged as long as she remains stable later today. DISCHARGE MEDICATIONS: Her home medications, Percocet and aspirin. FOLLOWUP: In 3 weeks. Home physical therapy has been arranged. Activities are weightbearing as tolerated with walker. Diet is regular. Job ID: [id number] DocumentID: [id number] Dictated Date: 12/24/2017 09:26:21 Equipment Maintenance Tech Date: 12/24/2017 23:27:08 Dictated By: MYRON JACOB MD
== END 2017-12-24 16:10 | disposition home health service (06) | DRG 470 ==
LOC: 4TH 06:04 → SURG 06:05 → 4TH 10:20
PROVIDERS: ADMIT Orthopaedic Surgery; ATTEND Orthopaedic Surgery
PROC: 0SRC0J9 Replacement of Right Knee Joint with Synthetic Substitute, Cemented, Open Approach (ICD-10-PCS; principal; 2017-12-21 07:30)
DX: M17.11 Unilateral primary osteoarthritis, right knee (principal); D62 Acute posthemorrhagic anemia; I10 Essential (primary) hypertension; F32.9 Major depressive disorder, single episode, unspecified; E78.00 Pure hypercholesterolemia, unspecified; E78.5 Hyperlipidemia, unspecified; K59.00 Constipation, unspecified; Z79.82 Long term (current) use of aspirin
CPT/HCPCS: 36415; 73560; 85014; 85018; 86850; 86900; 86901; 86920; 94664; 94760

== ENCOUNTER → 2018-04-05 | Outpatient (CLI) | payer MEDICARE, OTHER ==
[~2018-04-05] MED LIST changes: +ASPI-983 PO; +OXYC-197 PO
--- NOTE | 2018-04-05 13:41 | Diagnostic Imaging Report ---
INDICATION: Six-month followup of right breast nodules. COMPARISON: Right breast ultrasound from 08/30/2017. FINDINGS: The circumscribed hypoechoic nodule in the 10 o'clock location 7 cm from the nipple appears stable measuring 11 mm x 3 mm x 9 mm. A second area of circumscribed hypoechogenicity at the 6 o'clock location 2 cm from the nipple is also stable measuring 10 mm x 5 mm x11 mm. This has a small calcification along the margin. No new mass is detected. IMPRESSION: Stable hypoechoic nodules at the 10 and 6 o'clock locations of the right breast. These show a 1 year stability. An additional 6 month followup is recommended to confirm stability. ACR BI-RADS Category 3: Probably benign findings. Dictated by: Dictated on workstation # [id number]
--- NOTE | 2018-04-05 15:20 | Diagnostic Imaging Report ---
INDICATION: Six-month followup right breast density. COMPARISON: 02/21/2017 and 11/24/2015. TECHNIQUE: 2D and 3D bilateral diagnostic mammography was performed with CAD. FINDINGS: Both breasts remain heterogeneously dense, limiting the sensitivity of mammography. The previously described asymmetric density in the upper right breast is stable. No new mass or malignant appearing microcalcifications are seen. The slightly nodular density in the medial left breast appears stable. The axillae are unremarkable. IMPRESSION: Stable bilateral mammograms with no mammographic features suspicious for malignancy. Further evaluation of the right breast with ultrasound is recommended to further evaluate the previously described hypoechoic nodules. ACR BI-RADS Category 0: Incomplete. (Needs additional imaging evaluation). Result letter will be mailed to the patient. Note: At least 10% of breast cancer is not imaged by mammography. Dictated by: Dictated on workstation # [id number]
== END ==
LOC: RAD 12:36
PROVIDERS: ATTEND Family Medicine
DX: N63.11 Unspecified lump in the right breast, upper outer quadrant (principal); N63.12 Unspecified lump in the right breast, upper inner quadrant
CPT/HCPCS: 77066

== ENCOUNTER → 2018-04-10 | Outpatient (RCR) | payer MEDICARE, OTHER, MEDICAID | END | disposition home or self-care (01) | PROVIDERS: ATTEND Orthopaedic Surgery | DX: Z47.1 Aftercare following joint replacement surgery (principal); Z96.651 Presence of right artificial knee joint ==

== ENCOUNTER 2018-04-14 13:09 | Outpatient (RCR) | payer MEDICARE, OTHER, MEDICAID | END 2018-04-14 14:55 | disposition home or self-care (01) | PROVIDERS: ATTEND Orthopaedic Surgery | DX: Z47.1 Aftercare following joint replacement surgery (principal); Z96.651 Presence of right artificial knee joint ==

== ENCOUNTER → 2018-10-26 | Outpatient (CLI) | payer MEDICARE, OTHER, MEDICAID ==
[~2018-10-26] MED LIST changes: -OXYC-197 PO; +OXYC1TAB87 PO
--- NOTE | 2018-10-26 21:54 | Diagnostic Imaging Report ---
INDICATION: Six-month followup of right breast mass. Correlation is made with prior right breast ultrasound from 04/05/2018. FINDINGS: A previously noted circumscribed hypoechoic nodule 10 o'clock location is no longer visualized. The circumscribed hypoechoic nodule at the 6 o'clock location of the right breast 2 cm from the nipple appears to be fairly stable at 11 mm x 4 mm x 10 mm. Small calcification along the margin of the lesion is again noted. No new mass is detected. IMPRESSION: Stable right breast nodule 6 o'clock location 2 cm from the nipple. This now shows 18 months of stability. One more six-month followup is recommended to show continued stability. ACR BI-RADS Category 3: Probably benign findings. Dictated by: Dictated on workstation # [id number]
== END ==
LOC: RAD 08:57
PROVIDERS: ATTEND Nurse Practitioner Family
DX: N63.10 Unspecified lump in the right breast, unspecified quadrant (principal)

== ENCOUNTER → 2019-04-20 | Outpatient (CLI) | payer MEDICARE, MEDICAID ==
--- NOTE | 2019-04-20 20:06 | Diagnostic Imaging Report ---
INDICATION: Right breast nodule. Patient presents for six-month followup. COMPARISON: Correlation is made with a right breast ultrasound from 10/26/2018. EXAMINATION: Right breast ultrasound. FINDINGS: Previously noted hypoechoic nodule with calcification at the 6 o'clock location of right breast, 2 cm from the nipple, is again seen. This measures 11 mm x 4 mm x 8 mm compared with 11 mm x 4 mm x 10 mm on prior. No other abnormalities are identified. IMPRESSION: Stable right breast nodule at the 6 o'clock location, 2 cm from the nipple. This now shows one year of stability. Additional six-month followup is recommended to show continued stability. ACR BI-RADS Category 3: Probably benign findings. Result letter will be mailed to the patient. Note: At least 10% of breast cancer is not imaged by mammography. Dictated by: Dictated on workstation # [id number]
== END ==
LOC: RAD 08:59
PROVIDERS: ATTEND Family Medicine
DX: N63.10 Unspecified lump in the right breast, unspecified quadrant (principal)

== ENCOUNTER → 2019-08-02 | Outpatient (CLI) | payer MEDICARE, MEDICAID ==
[~2019-08-02] MED LIST changes: -DULO30CA48 PO; +DULO30CA49 PO
[2019-08-02 11:27] LABS: BASOPHILS % (AUTO) 1 % (0-10); EOSINOPHILS # (AUTO) 0.2 10^3/uL (0.0-0.3); EOSINOPHILS % (AUTO) 4 % (0-10); HEMATOCRIT 44 % (35-52); HEMOGLOBIN 14.4 G/DL (11.5-16.0); LYMPHOCYTES # (AUTO) 1.9 X 10^3 (1.0-4.0); LYMPHOCYTES % (AUTO) 34 % (12-44); MEAN CORPUSCULAR HEMOGLOBIN 28 PG (25-34); MEAN CORPUSCULAR HGB CONC 33 G/DL (32-36); MEAN CORPUSCULAR VOLUME 85 FL (80-99); MEAN PLATELET VOLUME 9.8 FL (7.4-10.4); MONOCYTES # (AUTO) 0.5 X 10^3 (0.0-1.0); MONOCYTES % (AUTO) 8 % (0-12); NEUTROPHILS % (AUTO) 53 % (42-75); PLATELET COUNT 192 10^3/uL (130-400); WHITE BLOOD COUNT 5.6 10^3/uL (4.3-11.0)
[2019-08-02 11:49] LABS: ALBUMIN 4.5 GM/DL (3.2-4.5); BILIRUBIN,TOTAL 0.8 MG/DL (0.1-1.0); CREATININE SERUM 1.05 MG/DL (0.60-1.30); POTASSIUM 4.3 MMOL/L (3.6-5.0); TOTAL PROTEIN 7.9 GM/DL (6.4-8.2)
== END ==
LOC: LAB 11:12
PROVIDERS: ATTEND Nurse Practitioner Family
DX: I10 Essential (primary) hypertension (principal)
CPT/HCPCS: 36415; 80053; 80061; 84443; 85025

== ENCOUNTER 2019-08-21 09:47 | Outpatient (CLI) | payer MEDICARE, MEDICAID ==
[~2019-08-21] VITALS: Ht 162.6 cm; Wt 108.0 kg
[2019-08-21 09:57] VITALS: BP 141/85
[2019-08-21] MEDS ORDERED: MIRA50TA PO (10:08)
[2019-08-21] MEDS ORDERED: ASPI-983 PO (10:08)
[2019-08-21] MEDS ORDERED: DULO60CA59 PO (10:08)
[2019-08-21] MEDS ORDERED: LOSA25TA41 PO (10:08)
[2019-08-21] MEDS ORDERED: SENN-229 PO (10:29)
[2019-08-21 10:36] LABS: BASOPHILS % (AUTO) 1 % (0-10); EOSINOPHILS # (AUTO) 0.2 10^3/uL (0.0-0.3); EOSINOPHILS % (AUTO) 4 % (0-10); HEMATOCRIT 41 % (35-52); HEMOGLOBIN 13.4 G/DL (11.5-16.0); LYMPHOCYTES # (AUTO) 1.5 X 10^3 (1.0-4.0); LYMPHOCYTES % (AUTO) 32 % (12-44); MEAN CORPUSCULAR HEMOGLOBIN 28 PG (25-34); MEAN CORPUSCULAR HGB CONC 33 G/DL (32-36); MEAN CORPUSCULAR VOLUME 86 FL (80-99); MEAN PLATELET VOLUME 10.3 FL (7.4-10.4); MONOCYTES # (AUTO) 0.3 X 10^3 (0.0-1.0); MONOCYTES % (AUTO) 7 % (0-12); NEUTROPHILS # (AUTO) 2.6 X 10^3 (1.8-7.8); NEUTROPHILS % (AUTO) 57 % (42-75); PLATELET COUNT 167 10^3/uL (130-400); RED CELL DISTRIBUTION WIDTH 14.9 % (10.0-14.5); WHITE BLOOD COUNT 4.6 10^3/uL (4.3-11.0)
[2019-08-21 10:37] LABS: BILIRUBIN,URINE NEGATIVE (NEGATIVE); CLARITY,URINE CLEAR; COLOR,URINE YELLOW; GLUCOSE, URINE (UA) NEGATIVE (NEGATIVE); KETONES,URINE NEGATIVE (NEGATIVE); LEUKOCYTE ESTERASE ,URINE 1+ (NEGATIVE); NITRITE,URINE NEGATIVE (NEGATIVE); PH,URINE 5 (5-9); PROTEIN,URINE NEGATIVE (NEGATIVE); UROBILINOGEN,URINE NORMAL (NORMAL)
[2019-08-21 10:45] LABS: BACTERIA,URINE TRACE /HPF; RBC,URINE RARE /HPF; WBC,URINE 0-2 /HPF
--- NOTE | 2019-08-21 10:50 | Diagnostic Imaging Report ---
INDICATION: Evaluation prior to knee replacement surgery.. TECHNIQUE: Two view chest 10:39 AM CORRELATION STUDY: 12/09/2017 FINDINGS: The heart size, mediastinal configuration and pulmonary vasculature are within normal limits. The lungs are clear with no consolidating infiltrate. There is no significant pleural effusion or pneumothorax. Slight accentuated thoracic kyphosis with degenerative changes thoracic spine. IMPRESSION: 1. No radiographic evidence for acute abnormality of the chest. Dictated by: Dictated on workstation # [id number]
[2019-08-21 10:52] LABS: PROTHROMBIN TIME PATIENT 13.1 SEC (12.2-14.7)
[2019-08-21 10:59] LABS: ALBUMIN 4.4 GM/DL (3.2-4.5); BILIRUBIN,TOTAL 0.6 MG/DL (0.1-1.0); CALCIUM 9.5 MG/DL (8.5-10.1); CREATININE SERUM 1.12 MG/DL (0.60-1.30); POTASSIUM 3.9 MMOL/L (3.6-5.0); TOTAL PROTEIN 7.3 GM/DL (6.4-8.2)
[2019-08-21 11:03] LABS: ERYTHROCYTE SEDIMENTATION RATE 17 MM/HR (0-30)
== END 2019-08-21 10:45 | disposition home or self-care (01) ==
LOC: PREOP 09:47
PROVIDERS: ATTEND Orthopaedic Surgery
DX: Z01.818 Encounter for other preprocedural examination (principal); M17.12 Unilateral primary osteoarthritis, left knee
CPT/HCPCS: 36415; 71046; 80053; 81000; 85025; 85610; 85652; 86850; 86900; 86901; 87081

== ENCOUNTER 2019-08-29 05:56 | Inpatient (IN) | payer MEDICARE, MEDICAID ==
--- NOTE | 2019-08-16 15:04 | HISTORY AND PHYSICAL ---
DATE OF SERVICE: ADMISSION HISTORY AND PHYSICAL DATE OF SERVICE AND ADMISSION: 08/29/2019. PROCEDURE: Left total knee arthroplasty. The patient will require regular inpatient admission due to pain control, gait abnormalities, weakness and comorbidities. HISTORY OF PRESENT ILLNESS: The patient is a 69-year-old female with longstanding progressive left knee pain. Radiographs reveal severe tricompartmental osteoarthritis. She has undergone treatment with injections, anti-inflammatories and rest without relief. Due to functional impairment and failure to improve with conservative measures, the patient elected to proceed with surgical intervention. REVIEW OF SYSTEMS: No chest pain, no shortness of breath, no dysuria. PAST MEDICAL HISTORY: Depression, hypertension and osteoarthritis. PAST SURGICAL HISTORY: Right total knee arthroplasty, abdominal hysterectomy, cholecystectomy. FAMILY HISTORY: Significant for kidney disease and cancer. PRIMARY CARE PROVIDER: Dr. Rincon. MEDICATIONS: Vitamin D, Lipitor, Voltaren, lisinopril, aspirin, duloxetine and Myrbetriq. ALLERGIES: No known drug allergies. SOCIAL HISTORY: The patient denies alcohol, tobacco use. PHYSICAL EXAMINATION: GENERAL: The patient is well developed, well-nourished, in no acute distress. HEENT: Normocephalic, atraumatic. Pupils are equal, round and reactive to light. Oropharynx is clear. NECK: Supple, no lymphadenopathy. LUNGS: Clear to auscultation bilaterally. HEART: Regular rate and rhythm. ABDOMEN: Soft, nontender, nondistended. EXTREMITIES: The left knee demonstrates a moderate effusion. She has varus alignment. She ambulates with an antalgic gait. She is tender along the medial joint line. She has pain medially with Dottie. There is no varus valgus laxity. Negative anterior and posterior drawer. Range of motion is 0/2/120 degrees. IMPRESSION: Severe left knee osteoarthritis, unresponsive to conservative measures. PLAN: Left total knee arthroplasty. The risks, benefits, options, ramifications and recovery were discussed at length with the patient. She understands and wishes to proceed. Job ID: [id number] DocumentID: [id number] Dictated Date: 08/16/2019 14:53:12 Mathematics Professor Date: 08/16/2019 15:04:15 Dictated By: MYRON JACOB MD
[2019-08-29] VITALS (10 sets, daily range): BP systolic 138–164; BP diastolic 71–88
[~2019-08-29] VITALS: Ht 162 cm; Wt 108.0 kg
[~2019-08-29 05:56] MED LIST changes: +DULO60CA59 PO; +LOSA25TA41 PO; +MIRA50TA PO; +SENN-229 PO
[2019-08-29] MEDS ORDERED: CEFUROXIME 1.5 GM (ZINACEF) VIAL ONE (06:33)
[2019-08-29] MEDS ORDERED: CATHETER FLUSH 10 ML SYR IV PRN (06:45)
[2019-08-29] MEDS ORDERED: CEFUROXIME INJECTION 1,500 MG in WATER (STERILE) FOR INJECTION 15 ML IV ONE (06:45)
[2019-08-29] MEDS ORDERED: fentaNYL INJECTION 100 MCG/2 ML AMP ONE ×2 (06:56→08:13)
[2019-08-29] MEDS: LACTATED RINGERS 1,000 ML IV PRN ×2 (06:56→08:08)
[2019-08-29] MEDS ORDERED: MIDAZOLAM 2 MG/2 ML (VERSED) VIAL ONE (06:56)
[2019-08-29] MEDS ORDERED: DEXAMETHASONE 10 MG/ML (DECADRON) 1 ML VIAL ONE (07:01)
[2019-08-29] MEDS ORDERED: LIDOCAINE PF 2% 5 ML (XYLOCAINE) VIAL ONE (07:01)
[2019-08-29] MEDS ORDERED: SEVOFLURANE (ULTANE) 15 ML INHAL SOLN ONE ×7 (07:01→09:22)
[2019-08-29] MEDS ORDERED: ONDANSETRON 4 MG/2 ML (SDV) Z0FRAN ONE ×2 (07:01→09:41)
[2019-08-29] MEDS ORDERED: proPOfol 200 MG/20 ML (DIPRIVAN) VIAL IV ONE ×2 (07:01→09:01)
[2019-08-29] MEDS ORDERED: ACETAMINOPHEN 325 MG TABLET PO PRN (07:15)
[2019-08-29] MEDS ORDERED: ONDANSETRON 4 MG/2 ML (SDV) Z0FRAN IVP PRN ×2 (07:15→09:45)
[2019-08-29] MEDS ORDERED: diphenhydrAMINE 50 MG/ML INJ (BENADRYL) IVP PRN (07:15)
[2019-08-29] MEDS ORDERED: morphine PCA 100 MG/100 ML BAG IV PRN (07:15)
[2019-08-29] MEDS ORDERED: INTRA-ARTICULAR IU ONE ×5 (07:30)
--- NOTE | 2019-08-29 07:30 | Progress Note-Pre Operative ---
Pre-Operative Progress Note H&P Reviewed The H&P was reviewed, patient examined and no changes noted. Date Seen by Provider: Aug 29, 2019 Time Seen by Provider: 07:15 Date H&P Reviewed: Aug 29, 2019 Time H&P Reviewed: 07:15 Pre-Operative Diagnosis: left knee primary osteoarthritis MYRON JACOB MD Aug 29, 2019 07:30
--- NOTE | 2019-08-29 07:31 | Progress Note-Post Operative ---
Post-Operative Progess Note Surgeon (s)/Tax Evaluator (s) Surgeon MYRON JACOB MD Tax Evaluator: Nicholas Conklin Pre-Operative Diagnosis left knee primary osteoarthritis Post-Operative Diagnosis left knee primary osteoarthritis Procedure & Operative Findings Date of Procedure 08/29/19 Procedure Performed/Findings left total knee arthroplasty Anesthesia Type GETA Estimated Blood Loss Estimated blood loss (mL): minimal Specimens/Packing Specimens Removed none Packing: none MYRON JACOB MD Aug 29, 2019 07:31
[2019-08-29] MEDS ORDERED: OXYC1TAB87 PO (07:33)
--- NOTE | 2019-08-29 07:35 | D/C HH Face to Face Order ---
D/C Face to Face Orders Reconcile Patient Problems Problems Reviewed?: Yes Instructions for Patient [facility], Patient Instructions/FollowUp: three weeks Physician to follow Patient: three weeks Discharge Diet for Home: Regular Diet Patient Data-Allergies,Ht & Wt Patient Allergies: Coded Allergies: No Known Drug Allergies (Unverified , 12/09/17) Height (Feet): 5 Height (Inches): 4.00 Weight (Pounds): 237 Weight (Ounces): 0.0 Home Health Need/Face to Face Date of Face to Face: Aug 29, 2019 Clinical Findings: Instability, Muscle weakness, Pain with ambulation, Unsteady gait I have seen Pt [id number]: Yes Discharged To: Home Diagnosis/Conditions: left total knee arthroplasty Patient is Homebound due to: Ellie fall risk due to instabilty, Muscle weakness, Pain w/ambulation Homebound Status Due to the above stated illness, injury or surgical procedure (medical condition or diagnosis) and associated clinical findings, the patient is homebound because of his/her inability to leave home except with aid of a supportive device and/or person AND leaving the home requires a considerable and taxing effort or is medically contraindicated. Pt req the following assistanc: Walker Home Health Nursing Orders Home Health Services Order: Physical Therapy-Evaluate & Treat DC knee torsten and apply steri strips 09/12/19 ok to start on Tuesday Home Health Infusion Therapy Line Start Date: Aug 29, 2019 Therapy Orders Therapy Orders: Physical Therapy, PT to assess for OT Therapy Specific Orders: Eval assistive deivces, Teach enviro modifications/ safety, Gait training, Increase strength/endurance, Provider maintenance therapy, Restore ROM Certify Stmt I certify that this patient is under my care and that I, a nurse practitioner or a physician; a billing assistant working with me, had a face to face encounter that - meets the physician face to face encounter requirements with this patient as dated. MYRON JACOB MD Aug 29, 2019 07:35
[2019-08-29] MEDS ORDERED: BUPIVACAINE 0.25% 30 ML (SENSORCAINE) VIAL ONE (08:09)
[2019-08-29] MEDS ORDERED: ESMOLOL 100 MG/10 ML (BREVIBLOC) VIAL ONE (09:00)
[2019-08-29] MEDS ORDERED: TRANEXAMIC ACID 100 MG/ML 10 ML INJECTION IV ONE (09:13)
[2019-08-29] MEDS ORDERED: morphine INJ 10 MG/ML 1ML (SYR OR VIAL) ONE (09:38)
[2019-08-29] MEDS ORDERED: morphine INJ 10 MG/ML 1ML (SYR OR VIAL) IVP ONE (09:45)
--- NOTE | 2019-08-29 10:25 | NUR ---
bedside report taken from Ryan Cleary from recovery at this time. This RN will cont to monitor this patient throughout the remainder of this shift.
--- NOTE | 2019-08-29 10:25 | NUR ---
EITAN YO admitted to room 427-1, with an admitting diagnosis of osteoarthritis of the left knee, on 08/29/19 from day surgery via bed, accompanied by pacu staff (Madiha). EITAN YO introduced to surroundings, call light, bed controls, phone, TV, temperature control, lights, meal times, smoking policy, visitor policy, side rail policy, bathrooms and showers. Patient Rights given to patient in the handbook. EITAN YO verbalizes understanding that [facility] is not responsible for the loss or damage to any personal effects or valuables that are kept in the patients posession during their hospitalization. EITAN YO verbalizes understanding of Interdisciplinary Patient Education. Patient and/or family were informed about the Rapid Response Team and its purpose.
[2019-08-29] MEDS ORDERED: morphine PCA 100 MG/100 ML BAG IV ONE (10:40)
[2019-08-29] MEDS ORDERED: NS IV 1000 ML 1,000 ML ONE (10:40)
--- NOTE | 2019-08-29 10:54 | Diagnostic Imaging Report ---
INDICATION: Left total knee replacement. TIME OF EXAMINATION: 9:48 AM. FINDINGS: Two views of the left knee demonstrate post operative changes of total knee arthroplasty. The prosthetic elements are in good position. No fracture or loosening is seen. There are overlying skin torsten noted. IMPRESSION: Satisfactory post operative left knee. Dictated by: Dictated on workstation # [id number]
[2019-08-29] MEDS: NS IV 1000 ML 1,000 ML IV SCH ×2 (11:00→20:02)
[2019-08-29] MEDS: SENNA W/DOCUSATE (SENOKOT S) TABLET PO SCH ×2 (11:02→20:02)
--- NOTE | 2019-08-29 11:20 | Progress Note ---
Standard Progress Note Progress Notes/Assess & Plan Date Seen by a Provider: Aug 29, 2019 Time Seen by a Provider: 09:30 Final Diagnosis post op check no complaints radiographs--HW well positioned without fracture LLE--2 plus DP pulse with brisk cap refill. Intact DF and PF of toes and ankle. Intact sensation throughout. s/p LTKA mobilize as able MYRON JACOB MD Aug 29, 2019 11:20
--- NOTE | 2019-08-29 14:09 | Physical Therapy Evaluation ---
PT Evaluation-General Medical Diagnosis Admission Date Aug 29, 2019 at 05:56 Medical Diagnosis: left TKA Onset Date: Aug 29, 2019 Therapy Diagnosis Therapy Diagnosis: impaired mobility, strength, endurance, ROM Height/Weight Height (Feet): 5 Height (Inches): 4.00 Weight (Pounds): 237 Weight (Ounces): 0.0 Precautions Precautions/Isolations: Standard Precautions Weight Bear Status Left Lower Extremity: Left Weight Bearing/Tolerated Referral Physician: Nicholas Conklin APRN Reason for Referral: Evaluation/Treatment Medical History Pertinent Medical History: Arthritis, HTN, OA Reviewed History: Yes Social History Home: Single Level Current Living Status: Spouse Entry Into Home: Stairs With Railing PT Steps Into Home: 2 Prior Prior Level of Function SCALE: Activities may be completed with or without assistive devices. 7-Usbydlhjnm-rzfokws completes the activity by him/herself with no assistance from a helper. 5-Set-up or Clean-up Assistance-helper sets up or cleans up; patient completes activity. [place] assists only prior to or following the activity. 4-Supervision or Touching Assistance-helper provides verbal cues and/or touching/steadying and/or contact guard assistance as patient completes activity. Assistance may be provided throughout the activity or intermittently. 3-Partial/Moderate Assistance-helper does LESS THAN HALF the effort. [place] lif ts, holds or supports trunk or limbs, but provides less than half the effort. 2-Substantial/Maximal Assistance-helper does MORE THAN HALF the effort. [place] lifts or holds trunk or limbs and provides more than half the effort. 3-Nlbyoihrf-tictys does ALL the effort. Patient does none of the effort to complete the activity. Or, the assistance of 2 or more helpers is required for the patient to complete the activity. If activity was not attempted, code reason: 7-Patient Refused. 9-Not Applicable-not attempted and the patient did not perform the activity before the current illness, exacerbation or injury. 10-Not Attempted due to Environmental Limitations-(lack of equipment, weather restraints, etc.). 88-Not Attempted due to Medical Conditions or Safety Concerns. Bed Mobility: 6 Transfers (B,C,W/C): 6 Gait: 6 Stairs: 6 Indoor Mobility (Ambulation): Independent Stairs: Independent PT Evaluation-Current Subjective Patient in bed pre tx, agrees to PT, has 5/10 pain in left leg. Pt/Family Goals to be independent at home Objective Patient Orientation: Normal For Age Attachments: Oxygen, IV ROM/Strength ROM Lower Extremities left knee flexion 70 degrees, extension +6 degrees Sensory Vision: Functional Hearing: Functional Sensation Right Lower Extremit: Intact Sensation Left Lower Extremity: Intact Transfers Roll Left to Right (QC): 4 Sit to Lying (QC): 3 Lying to Sitting/Side of Bed(Q: 3 Sit to Stand (QC): 4 Chair/Cht-fr-Ygxgm Xfer(QC): 4 Patient performs bed mobility with SBA, supine <-> sit min assist, sit <-> stand CGA, transfers CGA. Patient needs cues for hand placement and positioning. Patient urinated on her anthony hose, sock, polar care, gown, and bandage after standing. Nurse assisted changing and redressing. Gait Does the Patient Walk?: Yes Mode of Locomotion: Walk Anticipated Mode of Locomotion: Walk Walk 10 feet (QC): 4 Distance: 20' Gait Assistive Device: FWW Comments/Gait Description Patient ambulated to the bathroom and back with CGA, slow, antalgic gait, with flexed left knee. Balance Sitting Static: Normal Sitting Dynamic: Normal Standing Static: Good Standing Dynamic: Good Treatment TKA protocol left side x10 (AP, QS, HS, SAQ, SLR). CPM donned and set to leg and set to 50/-2 degrees. Patient has nurse call, phone, tray, all needs met. Assessment/Needs Patient has impaired mobility, strength, endurance, ROM post left TKA. Needs cues for hand placement and safety with every transfer. Rehab Potential: Fair PT [facility] Goals Baker Bench Goals PT Baker Bench Goals Time Frame: Sep 05, 2019 Sit to Lying (QC): 5 Lying-Sitting on Side/Bed(QC): 5 Sit to Stand (QC): 5 Roll Left to Right (QC): 5 Chair/Snd-fg-Tjxsv Xfer(QC): 5 Distance: 50' Walk 10 feet (QC): 5 Walk 50ft with 2 Turns (QC): 5 Gait Assistive Device: FWW PT Plan Problem List Problem List: Activity Tolerance, Functional Strength, Safety, Balance, Gait, Transfer, Bed Mobility, ROM Treatment/Plan Treatment Plan: Continue Plan of Care Treatment Plan: Bed Mobility, Education, Functional Activity Davis, Functional Strength, Gait, Safety, Therapeutic Exercise, Transfers Treatment Duration: Sep 05, 2019 Frequency: 11 times per week Estimated Hrs Per Day: .25 hour per day Patient and/or Family Agrees t: Yes Safety Risks/Education Patient Education: Gait Training, Transfer Techniques, Correct Positioning, Safety Issues Teaching Recipient: Patient Teaching Methods: Demonstration, Discussion Response to Teaching: Reinforcement Needed Discharge Recommendations Plan Patient will perform bed mobility and transfer training, balance and endurance training, functional strengthening, stair training, gait training, and education, to improve functional mobility and independence at home. Therapy Discharge Recommendati: Other, See Comments (home with family) Time/GCodes Time In: 1304 Time Out: 1358 Total Billed Treatment Time: 54 Total Billed Treatment 1 visit EVM 30' FA 24' LIZETT CASIANO PT Aug 29, 2019 14:09
--- NOTE | 2019-08-29 14:35 | OPERATIVE REPORT ---
DATE OF SERVICE: 08/29/2019 PREOPERATIVE DIAGNOSIS: Left knee primary osteoarthritis. POSTOPERATIVE DIAGNOSIS: Left knee primary osteoarthritis. PROCEDURE: Left total knee arthroplasty. SURGEON: Boogie Jacob MD DIVING JUDGE: Nicholas Conklin, who assisted throughout the procedure and closed the incision. ANESTHESIA: Femoral nerve block plus general endotracheal by Nicole Schwartz CRNA. TOURNIQUET TIME: Approximately 70 minutes at 300 mmHg. ESTIMATED BLOOD LOSS: Minimal. DRAINS: None. COMPLICATIONS: None. POSTOPERATIVE PLAN: Total knee arthroplasty protocol. MATERIALS: MicroPort cemented size 5 femur, cemented size 5 tibia with a 10 mm insert and cemented size 32 patellar button. STATEMENT OF MEDICAL NECESSITY: The patient is a 69-year-old female with longstanding progressive left knee pain. Radiographs revealed severe tricompartmental osteoarthritis. She had failed respond to conservative measures due to functional impairment, the patient elected to proceed with surgical intervention. DESCRIPTION OF PROCEDURE: After risks and benefits of procedure were discussed and questions were answered, an informed consent was signed and placed on chart, the operative site was confirmed in the preoperative holding area initialed by the surgeon. The patient was then transferred to the operating room and after adequate levels of general endotracheal anesthetic were obtained, a timeout was called, confirming the operative site. Left lower extremity was prepped and draped in the usual sterile fashion with the leg elevated and the knee flexed, tourniquet was inflated to 300 mmHg. Standard anterior approach was utilized. Hemostasis was obtained with cautery. Medial parapatellar arthrotomy was performed leaving 1 cm cuff on the patella for later reattachment. A portion of the fat pad was resected. The ACL was resected. A subperiosteal release was performed in the proximal medial tibia being careful to stay on the bony surface. The intramedullary guide was passed into the femur and the distal cutting block was placed and the distal cut was made. The femur was sized to a size 5, the 5 cutting block was placed parallel to the epicondylar axis and cuts were made from posterior to anterior. Subperiosteal release was then carefully performed on the posterior distal femur, being careful to stay on the bony surface. Intramedullary guide was then passed into the tibia. The cutting block was placed. The drop tristen transected the intermalleolar axis. This was pinned into position. The cut was made. The baseplate was placed and again the drop tristen transected the mid intermalleolar axis. This was then prepared with a drill and keel punch. The trochlear cut was then made off of the femoral trial and a 12 mm insert was placed. The patella was then prepared using the freehand technique and resecting 10 mm off the undersurface. The peg guide was placed and peg holes were drilled. A 32 trial was placed. Knee was taken through range of motion. Full extension was easily obtained a 120 degrees of flexion with gravity was easily obtained and only limited by her pannus. The patella tracked well. There was no anterior/posterior or medial/lateral laxity in flexion or extension. The trials were removed. The joint was copiously irrigated. Repair with pulse lavage. Periarticular block was placed in the posterior capsule, medial and lateral retinaculum extensor mechanism subcutaneous tissues. The joint was further irrigated. The bone ends were irrigated and dried. The tibial baseplate was cemented into position. Superior surface was irrigated and dried and the polyethylene insert was placed. Excessive cement was removed. The distal femur was irrigated and dried and the femoral prosthesis was cemented into position. Excessive cement was removed. The knee was brought out in full extension until cement had cured. The undersurface of the patella was irrigated and dried. The patellar button was cemented into position. Excessive cement was removed. Once the cement had cured, the knee was taken through range of motion. Full extension was easily obtained, 120 degrees of flexion with gravity was easily obtained. The patella tracked well. There was no anterior/posterior or medial/lateral laxity in flexion or extension. The joint was further irrigated with pulse lavage and the arthrotomy was closed with #2 Tevdek in ejcczx-oq-vlvdv interrupted fashion. The wound was further irrigated using total of 6 liters throughout the procedure. A 0 Vicryl was used for deep subcutaneous tissue, 2-0 Vicryl for the superficial subcutaneous tissue, torsten used on the skin. A soft dressing was applied. The tourniquet was deflated. The patient was transferred to the recovery room awake and in stable condition. Job ID: [id number] DocumentID: [id number] Dictated Date: 08/29/2019 09:34:15 Auto Mechanic Date: 08/29/2019 14:34:16 Dictated By: BOOGIE JACOB MD
[2019-08-29] MEDS: CEFUROXIME INJECTION 750 MG in WATER (STERILE) FOR INJECTION 10 ML IV SCH ×2 (14:59→23:23)
[2019-08-29] MEDS ORDERED: CEFUROXIME INJECTION 750 MG in WATER (STERILE) FOR INJECTION 10 ML IV SCH (15:15)
[2019-08-29] MEDS: oxyCODONE/APAP 5/325MG (PERCOCET 5) TABLET PO PRN (21:10)
[2019-08-30] VITALS: BP 148/84
[2019-08-30 04:00] VITALS: BP 150/77
[2019-08-30] MEDS: oxyCODONE/APAP 5/325MG (PERCOCET 5) TABLET PO PRN ×4 (04:40→23:47)
[2019-08-30 06:08] LABS: HEMOGLOBIN 12.2 G/DL (11.5-16.0)
[2019-08-30 08:00] VITALS: BP_SYST 111; BP_SYST 138; BP_DIAS 73; BP_DIAS 74
[2019-08-30] MEDS ORDERED: ENOXAPARIN 30 MG/0.3 ML (LOVENOX) SYR SC SCH (08:00)
--- NOTE | 2019-08-30 08:08 | Progress Note ---
Standard Progress Note Progress Notes/Assess & Plan Date Seen by a Provider: Aug 30, 2019 Time Seen by a Provider: 08:07 Progress/Assessment & Plan no complaints Vital Signs Date Time Temp Pulse Resp B/P (MAP) Pulse Ox O2 Delivery O2 Flow Rate FiO2 08/30/19 04:00 36.2 66 18 150/77 (101) 92 Nasal Cannula 1.00 08/30/19 00:00 36.4 81 18 148/84 (105) 95 Nasal Cannula 1.00 08/29/19 23:59 Nasal Cannula 1.00 08/29/19 19:45 36.8 72 18 152/80 (104) 96 Nasal Cannula 1.00 08/29/19 16:59 36.8 74 18 138/71 (93) 96 Nasal Cannula 4.00 08/29/19 13:40 94 Nasal Cannula 4.00 08/29/19 12:00 36.1 76 16 160/81 (107) 95 Nasal Cannula 4.00 08/29/19 10:25 36.5 20 164/81 (108) 94 Nasal Cannula 4 08/29/19 10:25 Nasal Cannula 4 08/29/19 10:15 Nasal Cannula 4 08/29/19 10:10 20 164/85 (111) 94 Nasal Cannula 4 08/29/19 10:00 20 157/76 (103) 97 OxyMask 6 08/29/19 10:00 OxyMask 6 08/29/19 09:50 20 163/74 (103) 96 OxyMask 6 08/29/19 09:45 OxyMask 8 08/29/19 09:40 20 159/74 (102) 99 OxyMask 10 08/29/19 09:29 OxyMask 10 08/29/19 09:29 36.5 20 154/88 (110) 97 OxyMask 10 I & O 08/30/19 07:00 Intake Total 4470 ml Output Total 2050 ml Balance 2420 ml Laboratory Tests Test 08/30/19 05:55 Range/Units Hemoglobin 12.2 11.5-16.0 G/DL Hematocrit 37 35-52 % LLE--dressing intact. NVI distally. no calf tenderness. s/p LTKA doing well PT/OT likely DC tomorrow MYRON JACOB MD Aug 30, 2019 08:08
[2019-08-30] MEDS: NS IV 1000 ML 1,000 ML IV SCH ×2 (08:22→21:11)
[2019-08-30] MEDS: ASPIRIN E.C. 81 MG (ECOTRIN) TAB PO SCH (08:22)
[2019-08-30] MEDS: SENNA W/DOCUSATE (SENOKOT S) TABLET PO SCH ×2 (08:22→19:37)
--- NOTE | 2019-08-30 09:01 | Consultation ---
History of Present Illness History of Present Illness Patient Consulted On(aury/time) 08/30/19 09:00 Date Seen by Provider: Aug 30, 2019 Time Seen by Provider: 09:01 Reason for Visit: LEFT KNEE REPLACEMENT History of Present Illness PT IS A 69 Y/O FEMALE WHO IS WELL KNOWN TO ME FROM CLINIC. SHE PRESENTED TO THE HOSPITAL FOR A SCHEDULE/ROUTINE KNEE REPLACEMENT. SHE IS POST-OP DAY #1 - SHE REPORTS THAT HER PAIN IS FAIRLY WELL CONTROLLED WITH THE [employer] WORK[employer]. SHE DENIES CHEST PAIN, SHORTNESS OF BREATH, ABDOMINAL PAIN, NAUSEA. Allergies and Home Medications Allergies Coded Allergies: No Known Drug Allergies (Unverified , 12/09/17) Home Medications Aspirin 81 Mg Tablet.dr, 81 MG PO HS, (Reported) Atorvastatin Calcium 10 Mg Tablet, 10 MG PO HS, (Reported) B Complex with Vitamin C 1 Each Tablet, 1 EACH PO HS, (Reported) Cholecalciferol (Vitamin D3) 2,000 Unit Capsule, 2,000 UNIT PO HS, (Reported) Duloxetine HCl 60 Mg Capsule.dr, 60 MG PO HS, (Reported) Losartan Potassium 25 Mg Tablet, 25 MG PO HS, (Reported) Mirabegron 50 Mg Tab.er.24h, 50 MG PO HS, (Reported) Oxycodone HCl/Acetaminophen 1 Each Tablet, 1 TAB PO Q4H Prescribed by: MYRON JACOB on 08/29/19 0733 Sennosides/Docusate Sodium 1 Each Tablet, 2 EACH PO HS, (Reported) Patient Home Medication List Home Medication List Reviewed: Yes Past Biyclbf-Rhknwt-Ztyqfn Hx Past Med/Social Hx: Reviewed Nursing Past Med/Soc Hx, Reviewed and Corrections made Patient Social History Alcohol Use: Denies Use Recreational Drug Use: No Smoking Status: Never a Smoker 2nd Hand Smoke Exposure: No Recent Foreign Travel: No Contact w/Someone Who Travel: No Recent Infectious Disease Expo: No Recent Hopitalizations: No Physical Abuse: No Sexual Abuse: No Mistreated: No Fear: No Immunizations Up To Date Date of Influenza Vaccine: Nov 08, 2018 Seasonal Allergies Seasonal Allergies: No Past Medical History Surgeries: Yes (R TKR, ) Respiratory: No Currently Using CPAP: No Currently Using BIPAP: No Cardiac: Yes High Cholesterol, Hypertension Neurological: No Reproductive Disorders: No 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 HIV/AIDS: No Genitourinary: Yes (URINE LEAKAGE) Gastrointestinal: No Musculoskeletal: Yes Arthritis Endocrine: No HEENT: Yes (GLASSES, DENTURES) Loss of Vision: Bilateral Hearing Impairment: Denies Cancer: No Psychosocial: Yes Depression Integumentary: No Blood Disorders: No Family Medical History Reviewed Nursing Family Hx Myocardial infarction 19 MOTHER Respiratory disorder 19 FATHER (lung cancer) G8 BROTHER (lung cancer) Heart Disease, Cancer Review of Systems-General Constitutional: No chills, No fever, No malaise, No weakness EENTM: No hoarseness, No throat pain Respiratory: No cough, No dyspnea on exertion, No short of breath Cardiovascular: No chest pain, No palpitations Gastrointestinal: No abdominal pain, No constipation, No diarrhea, No nausea Genitourinary: no symptoms reported Musculoskeletal: joint swelling (LEFT KNEE PAIN), muscle weakness Skin: no symptoms reported Psychiatric/Neurological: Denies Anxiety; Depressed (CHRONIC); Denies Weakness All Other Systems Reviewed Negative Unless Noted: Yes Physical Exam-General Problems Physical Exam Vital Signs Vital Signs - First Documented Capillary Refill : Less Than 3 Seconds General Appearance: WD/WN, no apparent distress Eyes: Bilateral Eye Normal Inspection, Bilateral Eye PERRL, Bilateral Eye EOMI HEENT: PERRL/EOMI, pharynx normal Neck: non-tender, full range of motion, supple, normal inspection Respiratory: chest non-tender, lungs clear, normal breath sounds, no respiratory distress Cardiovascular: regular rate, rhythm Gastrointestinal: normal bowel sounds, non tender, soft, no organomegaly, no pulsatile mass Rectal: deferred Extremities: non-tender (SURGICAL DRESSING IN PLACE ON LEFT KNEE WITH JILLIAN HOSE I NPLACE ON BILATERAL LOWER EXTREMITIES TO THIGHS) Neurologic/Psychiatric: grainer machine II-XII nml as tested, no motor/sensory deficits, alert, normal mood/affect, oriented x 3 Skin: normal color, warm/dry Lymphatic: no adenopathy Assessment/Plan Assessment/Plan Admission Diagnosis/Plan LEFT KNEE ARTHRITIS WITH CHRONIC PAIN POST-OP LEFT KNEE REPLACEMENT DAY #1 HYPERTENSION CHRONIC DEPRESSION LEFT KNEE ARTHRITIS WITH CHRONIC PAIN - PT IS NOW STATUS POST-OP LEFT KNEE REPLACEMENT DAY #1 - CONTINUE WITH [employer] - WITH PLANNED TRANSITION TO ORAL PAIN MEDICATION - MILD ANEMIA POST-OPERATIVELY - NO NEED FOR TRANSFUSION OR IV IRON. HYPERTENSION - CHRONIC - UNCONTROLLED - ONE TIME DOSE NOW OF [place] AND RESTART NIGHT- TIME DOSE THIS EVENING - MONITOR PRESSURE CHRONIC DEPRESSION - RESTART CYMBALTA Admission Status: Inpatient Order (span 2 midnights) Reason for Inpatient Admission: INPT ADMISSION FOR KNEE REPLACEMENT Clinical Quality Measures DVT/VTE Risk/Contraindication: Risk Factor Score Per Nursin RFS Level Per Nursing on Admit: 4+=Very High NIRMALA RAMIRES MD Aug 30, 2019 09:01
[2019-08-30] MEDS ORDERED: LOSARTAN 25 MG (COZAAR) TAB PO NR (09:15)
[2019-08-30] MEDS: MULTIVIT W/MINERALS TAB (THERAGRAN M) PO SCH (10:21)
--- NOTE | 2019-08-30 10:21 | NUR ---
given on [facility] shift [facility] just not charted by VINCENZO Hayes.
--- NOTE | 2019-08-30 10:46 | Physical Therapy Daily Note ---
PT Daily Note-Current Subjective Patient agrees to PT. No c/o. Pain Numeric Pain Scale: 5-Moderate Pain Location: Left Location Body Site: Knee Pain Description: Acute Mental Status Patient Orientation: Normal For Age Attachments: IV Transfers SCALE: Activities may be completed with or without assistive devices. 5-Jbkkfgsqte-aeqtzgh completes the activity by him/herself with no assistance f rom a helper. 5-Set-up or Clean-up Assistance-helper sets up or cleans up; patient completes activity. [employer] assists only prior to or following the activity. 4-Supervision or Touching Assistance-helper provides verbal cues and/or touching/steadying and/or contact guard assistance as patient completes activity. Assistance may be provided throughout the activity or intermittently. 3-Partial/Moderate Assistance-helper does LESS THAN HALF the effort. [employer] lifts, holds or supports trunk or limbs, but provides less than half the effort. 2-Substantial/Maximal Assistance-helper does MORE THAN HALF the effort. [employer] lifts or holds trunk or limbs and provides more than half the effort. 6-Mbbhxfwwy-mpsckq does ALL the effort. Patient does none of the effort to complete the activity. Or, the assistance of 2 or more helpers is required for the patient to complete the activity. If activity was not attempted, code reason: 7-Patient Refused. 9-Not Applicable-not attempted and the patient did not perform the activity before the current illness, exacerbation or injury. 10-Not Attempted due to Environmental Limitations-(lack of equipment, weather restraints, etc.). 88-Not Attempted due to Medical Conditions or Safety Concerns. Roll Left to Right (QC): 6 Sit to Lying (QC): 6 Sit to Stand (QC): 6 Chair/Fdl-ps-Kixzc Xfer(QC): 6 Bed to/from Chair: 6 Weight Bearing Left Lower Extremity: Left Weight Bearing/Tolerated Gait Training Does the Patient Walk?: Yes Distance: 225' Walk 10 feet (QC): 6 Walk 50 ft with 2 Turns(QC): 6 Walk 150 ft (QC): 6 Gait Assistive Device: FWW reciprocal pattern with FWW Exercises Supine Ex: Ankle pumps, Quad Set, Heel Slides, Straight leg raise Supine Reps: 15 Seated Therapy Exercises: Long arc quads Seated Reps: 20 Assessment Patient tolerated treatment well and returned to room with needs met. Patient plans to dismiss to home tomorrow with spouse and home health intervention. PT Residential Goals Residential Goals PT Residential Goals Time Frame: Sep 05, 2019 Sit to Lying (QC): 5 Lying-Sitting on Side/Bed(QC): 5 Sit to Stand (QC): 5 Roll Left to Right (QC): 5 Chair/Cqj-dl-Fkbmt Xfer(QC): 5 Distance: 50' Walk 10 feet (QC): 5 Walk 50ft with 2 Turns (QC): 5 Gait Assistive Device: FWW PT Plan Treatment/Plan Treatment Plan: Continue Plan of Care Treatment Plan: Bed Mobility, Education, Functional Activity Davis, Functional Strength, Gait, Safety, Therapeutic Exercise, Transfers Treatment Duration: Sep 05, 2019 Frequency: 11 times per week Estimated Hrs Per Day: .25 hour per day Patient and/or Family Agrees t: Yes Time/GCodes Time In: 812 Time Out: 838 Total Billed Treatment Time: 26 Total Billed Treatment 1 visit EX 14 min GT 12 min DEBBIE VELAZQUEZ PT Aug 30, 2019 10:46
[2019-08-30 12:00] VITALS: BP 134/71
--- NOTE | 2019-08-30 13:22 | Occupational Therapy Eval ---
OT Evaluation-General/PLF Medical Diagnosis Admission Date Aug 29, 2019 at 05:56 Medical Diagnosis: left TKA Onset Date: Aug 29, 2019 Therapy Diagnosis Therapy Diagnosis: decreased ADL and functional mobility Height/Weight Height (Feet): 5 Height (Inches): 4.00 Weight (Pounds): 237 Weight (Ounces): 0.0 Precautions Precautions/Isolations: Fall Prevention, Standard Precautions, Pressure Ulcer Weight Bear Status Weight Bearing Restriction: Weight Bearing/Tolerated Referral Physician: Nicholas Conklin APRN Referral Reason: Activity Tolerance, Self Care, Evaluation/Treatment, Strengthening/ROM Medical History Pertinent Medical History: Arthritis, HTN, OA Additional Medical History kidney disease, cancer, OA, HTN, previous R TKA Current History L TKA Reviewed History: Yes Social History Home: Single Level Current Living Status: Spouse Entry Into Home: Stairs With Railing Steps Into Home: 2 Steps Inside Home: 0 ADL-Prior Level of Function SCALE: Activities may be completed with or without assistive devices. 5-Ywqgzgylbx-slquste completes the activity by him/herself with no assistance from a helper. 5-Set-up or Clean-up Assistance-helper sets up or cleans up; patient completes activity. [place] assists only prior to or following the activity. 4-Supervision or Touching Assistance-helper provides verbal cues and/or touching/steadying and/or contact guard assistance as patient completes activity. Assistance may be provided throughout the activity or intermittently. 3-Partial/Moderate Assistance-helper does LESS THAN HALF the effort. [place] lifts, holds or supports trunk or limbs, but provides less than half the effort. 2-Substantial/Maximal Assistance-helper does MORE THAN HALF the effort. [place] lifts or holds trunk or limbs and provides more than half the effort. 5-Jzrtujwrd-hobtes does ALL the effort. Patient does none of the effort to complete the activity. Or, the assistance of 2 or more helpers is required for the patient to complete the activity. If activity was not attempted, code reason: 7-Patient Refused. 9-Not Applicable-not attempted and the patient did not perform the activity before the current illness, exacerbation or injury. 10-Not Attempted due to Environmental Limitations-(lack of equipment, weather restraints, etc.). 88-Not Attempted due to Medical Conditions or Safety Concerns. 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 Pt agreeable to OT evaluation, seen supine in bed. Mental Status/Objective Patient Orientation: Person, Place, Time, Situation, Normal For Age Attachments: IV Current Glasses/Contacts: Yes Hearing Aids: No Dentures/Partials: Yes Hand Dominance: Right Upper Extremity ROM WFL BUE Upper Extremity Coordination WFL BUE Upper Extremity Sensation WFL BUE Upper Extremity Strength 4/5 BUE ADL-Treatment Eating (QC): 5 (Pt requires s/u to place straw in container) On/Off Footwear (QC): 3 Other Treatments Pt seen in bed, states she was just in chair and refuses need to use bathroom or change into clothes on this date. Pt states she is hungry and has ordered drinks. Pt completes tasks in bed, left in bed with call light in reach and all needs met. Education OT Patient Education: Correct positioning, Disease process, Modified ADL techniques, Purpose of tx/functional activities, Rehab process, Safety issues, Use of adapted equipment Teaching Recipient: Patient Teaching Methods: Demonstration, Discussion Response to Teaching: Verbalize Understanding, Return Demonstration OT Short Term Goals Short Term Goals Upper Body Dressing(FIM): 4 Lower Body Dressing(FIM): 4 Additional Short Term Goals: 1-Demonstrate ADL Tasks, 2-Verbalize Understanding, 3-ImproveStrength/Davis 1=Demonstrate adherence to instructed precautions during ADL tasks. 2=Patient will verbalize/demonstrate understanding of assistive devices/modifications for ADL. 3=Patient will improve strength/tolerance for activity to enable patient to perform ADL's. OT Chcf Goals Chcf Goals Eating (QC): 6 Oral Hygiene (QC): 6 Shower/Bathe Self (QC): 5 Upper Body Dressing (QC): 5 Lower Body Dressing (QC): 5 On/Off Footwear (QC): 5 Toileting Hygiene (QC): 5 Toilet/Commode Transfer (QC): 5 Additional Goals: 1-Demonstrate ADL Tasks, 2-Verbalize Understanding, 3- ImproveStrength/Davis 1=Demonstrate adherence to instructed precautions during ADL tasks. 2=Patient will verbalize/demonstrate understanding of assistive devices/modifications for ADL. 3=Patient will improve strength/tolerance for activity to enable patient to perform ADL's. OT Education/Plan Problem List/Assessment Assessment: Decreased Activ Tolerance, Decreased UE Strength, Impaired I ADL's, Impaired Self-Care Skills Discharge Recommendations Plan/Recommendations: Continue POC Therapy Discharge Recommendati: Post Acute OT Equpiment Recommendations-D/C: Wood Repatcher Patient/Family Goals Pt wishes to return home with spouse. Treatment Plan/Plan of Care Treatment,Training & Education: Yes Patient would benefit from OT for education, treatment and training to promote independence in ADL's, mobility, safety and/or upper extremity function for ADL's. Plan of Care: ADL Retraining, Caregiver Training, Functional Mobility, Group Exercise/Act as Ind, Orthotic Fitting/Training, UE Funct Exercise/Act Treatment Duration: Sep 06, 2019 Frequency: 5 times per week Estimated Hrs Per Day: .25 hour per day Agreement: Yes Rehab Potential: Fair Time/GCodes Start Time: 09:40 Stop Time: 09:53 Total Time Billed (hr/min): 13 Billed Treatment Time 1 EVL (13) INOCENCIA PLAZA OTR Aug 30, 2019 13:21
--- NOTE | 2019-08-30 13:57 | Anesthesia-General Post-Op ---
General Patient Condition Mental Status/LOC: Same as Preop Cardiovascular: Satisfactory Nausea/Vomiting: Absent Respiratory: Satisfactory Pain: Controlled Complications: Absent Post Op Complications Complications None Follow Up Care/Instructions Patient Instructions None needed. Anesthesia/Patient Condition Patient Condition Patient is doing well, no complaints, stable vital signs, no apparent adverse anesthesia problems. KRISTYN AGUILLON DO Aug 30, 2019 13:57
--- NOTE | 2019-08-30 14:13 | Physical Therapy Daily Note ---
PT Daily Note-Current Subjective Patient has no c/o. Agrees to PT. Pain Numeric Pain Scale: 3 Location: Left Location Body Site: Knee Pain Description: Acute Mental Status Patient Orientation: Normal For Age Attachments: IV Transfers SCALE: Activities may be completed with or without assistive devices. 0-Xefdfeuxlp-ufcwptj completes the activity by him/herself with no assistance from a helper. 5-Set-up or Clean-up Assistance-helper sets up or cleans up; patient completes activity. [place] assists only prior to or following the activity. 4-Supervision or Touching Assistance-helper provides verbal cues and/or touching/steadying and/or contact guard assistance as patient completes activity. Assistance may be provided throughout the activity or intermittently. 3-Partial/Moderate Assistance-helper does LESS THAN HALF the effort. [place] lifts, holds or supports trunk or limbs, but provides less than half the effort. 2-Substantial/Maximal Assistance-helper does MORE THAN HALF the effort. [place] lifts or holds trunk or limbs and provides more than half the effort. 8-Eikstzbyo-aromkd does ALL the effort. Patient does none of the effort to c omplete the activity. Or, the assistance of 2 or more helpers is required for the patient to complete the activity. If activity was not attempted, code reason: 7-Patient Refused. 9-Not Applicable-not attempted and the patient did not perform the activity before the current illness, exacerbation or injury. 10-Not Attempted due to Environmental Limitations-(lack of equipment, weather restraints, etc.). 88-Not Attempted due to Medical Conditions or Safety Concerns. Roll Left to Right (QC): 6 Sit to Lying (QC): 6 Sit to Stand (QC): 6 Chair/Yfy-yq-Dobyr Xfer(QC): 6 Bed to/from Chair: 6 Weight Bearing Left Lower Extremity: Left Weight Bearing/Tolerated Gait Training Does the Patient Walk?: Yes Distance: 275' Walk 10 feet (QC): 6 Walk 50 ft with 2 Turns(QC): 6 Walk 150 ft (QC): 6 Gait Assistive Device: FWW reciprocal pattern Exercises Supine Ex: Ankle pumps, Quad Set, Heel Slides, Straight leg raise Supine Reps: 15 Seated Therapy Exercises: Long arc quads Seated Reps: 20 Treatments CPM 0-66 degrees with polar pack in place Assessment Patient tolerated treatment well and is progressing with treatment plan. PT to continue to increase activity. PT Skilled Nursing Goals Collar Fuser Goals PT Collar Fuser Goals Time Frame: Sep 05, 2019 Sit to Lying (QC): 5 Lying-Sitting on Side/Bed(QC): 5 Sit to Stand (QC): 5 Roll Left to Right (QC): 5 Chair/Xch-ef-Lnuwb Xfer(QC): 5 Distance: 50' Walk 10 feet (QC): 5 Walk 50ft with 2 Turns (QC): 5 Gait Assistive Device: FWW PT Plan Treatment/Plan Treatment Plan: Continue Plan of Care Treatment Plan: Bed Mobility, Education, Functional Activity Davis, Functional Strength, Gait, Safety, Therapeutic Exercise, Transfers Treatment Duration: Sep 05, 2019 Frequency: 11 times per week Estimated Hrs Per Day: .25 hour per day Patient and/or Family Agrees t: Yes Time/GCodes Time In: 1311 Time Out: 1335 Total Billed Treatment Time: 14 Total Billed Treatment 1 visit EX 13 min GT 11 min DEBBIE VELAZQUEZ PT Aug 30, 2019 14:13
[2019-08-30 16:00] VITALS: BP 119/71
[2019-08-30] MEDS: ENOXAPARIN 40 MG/0.4 ML (LOVENOX) SYR SC SCH (19:36)
[2019-08-30 20:00] VITALS: BP 129/72
[2019-08-30] MEDS ORDERED: SENNA W/DOCUSATE (SENOKOT S) TABLET PO SCH (21:00)
[2019-08-30] MEDS ORDERED: DULoxetine 30 MG (CYMBALTA) CAP PO SCH (21:00)
[2019-08-30] MEDS ORDERED: LOSARTAN 25 MG (COZAAR) TAB PO SCH (21:00)
[2019-08-31] VITALS: BP 139/71
[2019-08-31 04:45] VITALS: BP 118/72
[2019-08-31] MEDS: MULTIVIT W/MINERALS TAB (THERAGRAN M) PO SCH (05:40)
[2019-08-31 06:53] LABS: HEMOGLOBIN 10.9 G/DL (11.5-16.0)
--- NOTE | 2019-08-31 07:06 | Progress Note ---
Standard Progress Note Progress Notes/Assess & Plan Date Seen by a Provider: Aug 31, 2019 Time Seen by a Provider: 07:05 Progress/Assessment & Plan no complaints Vital Signs Date Time Temp Pulse Resp B/P (MAP) Pulse Ox O2 Delivery O2 Flow Rate FiO2 08/30/19 04:00 36.2 66 18 150/77 (101) 92 Nasal Cannula 1.00 08/30/19 00:00 36.4 81 18 148/84 (105) 95 Nasal Cannula 1.00 08/29/19 23:59 Nasal Cannula 1.00 08/29/19 19:45 36.8 72 18 152/80 (104) 96 Nasal Cannula 1.00 08/29/19 16:59 36.8 74 18 138/71 (93) 96 Nasal Cannula 4.00 08/29/19 13:40 94 Nasal Cannula 4.00 08/29/19 12:00 36.1 76 16 160/81 (107) 95 Nasal Cannula 4.00 08/29/19 10:25 36.5 20 164/81 (108) 94 Nasal Cannula 4 08/29/19 10:25 Nasal Cannula 4 08/29/19 10:15 Nasal Cannula 4 08/29/19 10:10 20 164/85 (111) 94 Nasal Cannula 4 08/29/19 10:00 20 157/76 (103) 97 OxyMask 6 08/29/19 10:00 OxyMask 6 08/29/19 09:50 20 163/74 (103) 96 OxyMask 6 08/29/19 09:45 OxyMask 8 08/29/19 09:40 20 159/74 (102) 99 OxyMask 10 08/29/19 09:29 OxyMask 10 08/29/19 09:29 36.5 20 154/88 (110) 97 OxyMask 10 I & O 08/30/19 07:00 Intake Total 4470 ml Output Total 2050 ml Balance 2420 ml Laboratory Tests Test 08/30/19 05:55 Range/Units Hemoglobin 12.2 11.5-16.0 G/DL Hematocrit 37 35-52 % LLE--dressing intact. NVI distally. no calf tenderness. s/p LTKA doing well PT/OT likely DC tomorrow Final Diagnosis no complaints Vital Signs Date Time Temp Pulse Resp B/P (MAP) Pulse Ox O2 Delivery O2 Flow Rate FiO2 08/31/19 04:45 36.8 83 19 118/72 (87) 93 Nasal Cannula 0.50 08/31/19 00:00 36.7 78 20 139/71 (93) 91 Nasal Cannula 0.50 08/30/19 20:30 Nasal Cannula 1.00 08/30/19 20:00 37.6 87 18 129/72 (91) 97 Nasal Cannula 0.50 08/30/19 16:00 37.3 83 18 119/71 (87) 93 Nasal Cannula 1.00 08/30/19 12:00 36.7 77 20 134/71 (92) 90 Room Air 08/30/19 08:00 37.0 74 18 138/74 (95) 92 Room Air 08/30/19 08:00 Room Air I & O 08/31/19 07:00 Intake Total 2880 ml Output Total 2010 ml Balance 870 ml Laboratory Tests Test 08/31/19 06:40 Range/Units Hemoglobin 10.9 L 11.5-16.0 G/DL Hematocrit 35 35-52 % LLE--incision clean and dry. No calf tenderness. Neg Des's s/p LTKA doing well DC home later today MYRON JACOB MD Aug 31, 2019 07:06
[2019-08-31] MEDS ORDERED: morphine INJ 4 MG/ML 1 ML (VIAL/SYRINGE) IVP PRN (07:15)
[2019-08-31] MEDS: oxyCODONE/APAP 5/325MG (PERCOCET 5) TABLET PO PRN ×2 (07:44→13:46)
--- NOTE | 2019-08-31 08:00 | NUR ---
Morphine COMPOUND SPECIALIST dc'd 71ml's mophine wasted, witnessed by Blaire
[2019-08-31 08:30] VITALS: BP 153/68
--- NOTE | 2019-08-31 08:39 | Progress Note ---
Subjective Date Seen by a Provider: Aug 31, 2019 Time Seen by a Provider: 08:30 Subjective/Events-last exam PT REPORTS THAT SHE IS HAVING PAIN WITH THERAPY/MOVEMENT OF HER KNEE - BUT THE ORAL PAIN MEDICATION SEEMS TO CONTROL SOME OF HER DISCOMFORT. SHE DENIES ABDOMINAL PAIN, NAUSEA, HAS PASSED SOME GAS. Review of Systems General: Fatigue Pulmonary: No Dyspnea, No Cough Cardiovascular: No: Chest Pain, Palpitations Gastrointestinal: No: Nausea, Abdominal Pain Genitourinary: No Dysuria Musculoskeletal: leg pain Neurological: Weakness; No: Confusion Objective Exam Last Set of Vital Signs Vital Signs Date Time Temp Pulse Resp B/P (MAP) Pulse Ox O2 Delivery O2 Flow Rate FiO2 08/31/19 04:45 36.8 83 19 118/72 (87) 93 Nasal Cannula 0.50 Capillary Refill : Less Than 3 Seconds I&O Intake and Output 08/31/19 00:00 Intake Total 2780 ml Output Total 2260 ml Balance 520 ml Intake Oral 1780 ml IV Total 1000 ml Output Urine Total 2260 ml # Voids 1 General: Alert, Oriented X3, Cooperative, No Acute Distress HEENT: Atraumatic, PERRLA Neck: Supple Lungs: Clear to Auscultation, Normal Air Movement Heart: Regular Rate Abdomen: Normal Bowel Sounds, Soft, No Tenderness Extremities: Other Skin: No Rashes, No Breakdown Neuro: Cranial Nerves 3-12 NL Psych/Mental Status: Mental Status NL, Mood NL Results Lab Laboratory Tests 08/31/19 06:40: Hemoglobin 10.9L, Hematocrit 35 Assessment/Plan Assessment/Plan Assess & Plan/Chief Complaint LEFT KNEE ARTHRITIS WITH CHRONIC PAIN POST-OP LEFT KNEE REPLACEMENT DAY #2 HYPERTENSION CHRONIC DEPRESSION LEFT KNEE ARTHRITIS WITH CHRONIC PAIN - PT IS NOW STATUS POST-OP LEFT KNEE REPLACEMENT DAY #2 - CONTINUE WITH LOADING MACHINE TOOL SETTER - WITH PLANNED TRANSITION TO ORAL PAIN MEDICATION - MILD ANEMIA POST-OPERATIVELY - NO NEED FOR TRANSFUSION OR IV IRON. HYPERTENSION - CHRONIC -IMPROVED - CONTINUE WITH NIGHT-TIME DOSE OF [place] CHRONIC DEPRESSION - RESTARTED CYMBALTA RTC IN 2 WEEKS FOR FOLLOW-UP POST-OPERATIVELY Clinical Quality Measures DVT/VTE Risk/Contraindication: Risk Factor Score Per Nursin RFS Level Per Nursing on Admit: 4+=Very High NIRMALA RAMIRES MD Aug 31, 2019 08:39
[2019-08-31] MEDS: ENOXAPARIN 40 MG/0.4 ML (LOVENOX) SYR SC SCH (09:21)
[2019-08-31] MEDS: SENNA W/DOCUSATE (SENOKOT S) TABLET PO SCH (09:22)
[2019-08-31] MEDS: ASPIRIN E.C. 81 MG (ECOTRIN) TAB PO SCH (09:22)
--- NOTE | 2019-08-31 10:35 | Occupational Ther Daily Note ---
OT Current Status-Daily Note Subjective Pt states 3/10 pain while sitting in L knee. Pt states she is feeling "loopy" due to medication. Pt states she is now off morphine and plans to go home this afternoon. Pt's present, both agreeable to OT tx session. Mental Status/Objective Patient Orientation: Normal For Age ADL-Treatment Therapy Code Descriptions/Definitions Functional [place] Measure: 0=Not Assessed/NA 4=Minimal Assistance 1=Total Assistance 5=Supervision or Setup 2=Maximal Assistance 6=Modified [place] 3=Moderate Assistance 7=Complete IndependenceSCALE: Activities may be completed with or without assistive devices. 5-Juoapahztc-ceddolo completes the activity by him/herself with no assistance from a helper. 5-Set-up or Clean-up Assistance-helper sets up or cleans up; patient completes activity. [place] assists only prior to or following the activity. 4-Supervision or Touching Assistance-helper provides verbal cues and/or touching /steadying and/or contact guard assistance as patient completes activity. Assistance may be provided throughout the activity or intermittently. 3-Partial/Moderate Assistance-helper does LESS THAN HALF the effort. [place] lifts, holds or supports trunk or limbs, but provides less than half the effort. 2-Substantial/Maximal Assistance-helper does MORE THAN HALF the effort. [place] lifts or holds trunk or limbs and provides more than half the effort. 3-Uaexoqwyx-hkfktw does ALL the effort. Patient does none of the effort to complete the activity. Or, the assistance of 2 or more helpers is required for the patient to complete the activity. If activity was not attempted, code reason: 7-Patient Refused. 9-Not Applicable-not attempted and the patient did not perform the activity before the current illness, exacerbation or injury. 10-Not Attempted due to Environmental Limitations-(lack of equipment, weather restraints, etc.). 88-Not Attempted due to Medical Conditions or Safety Concerns. Eating (QC): 6 (Pt gathers cup and drinks from straw.) Toilet Transfer (QC): 5 (SBA) Other Treatment Pt and states pt plans to d/c this afternoon. pt and educated on OT role and recommendations. Pt and verbalize understanding. Pt sit to stand with SBA, utilizes walker to go into bathroom. Pt completes shower and toilet transfer with SBA. Pt lays in bed, requires mod A with lifting L LE into bed. Pt states will help her with dressing and other ADL tasks as he is home through day. Pt and educated on dressing LLE first, not twisting knee, and allowing pt to complete as much as possible and encourage moving through the day. Pt and educated on tub bench, grab bars, and AE use for dressing tasks. All questions answers, pt left in bed, call light in reach, all needs met. Education OT Patient Education: Correct positioning, Energy conservation, Instructions to caregiver, Modified ADL techniques, Purpose of tx/functional activities, Reviewed precautions, Safety issues, Use of adapted equipment Teaching Recipient: Patient, Significant Other Teaching Methods: Demonstration, Discussion Response to Teaching: Verbalize Understanding, Return Demonstration OT Short Term Goals Short Term Goals Upper Body Dressing(FIM): 4 Lower Body Dressing(FIM): 4 Additional Short Term Goals: 1-Demonstrate ADL Tasks, 2-Verbalize Understanding, 3-ImproveStrength/Davis 1=Demonstrate adherence to instructed precautions during ADL tasks. 2=Patient will verbalize/demonstrate understanding of assistive devices/modif ications for ADL. 3=Patient will improve strength/tolerance for activity to enable patient to perform ADL's. OT Nursing Home Goals Inspector Of Weights And Measures Goals Eating (QC): 6 (met) Oral Hygiene (QC): 6 Shower/Bathe Self (QC): 5 Upper Body Dressing (QC): 5 Lower Body Dressing (QC): 5 On/Off Footwear (QC): 5 Toileting Hygiene (QC): 5 (met) Toilet/Commode Transfer (QC): 5 (met) Additional Goals: 1-Demonstrate ADL Tasks, 2-Verbalize Understanding, 3- ImproveStrength/Davis 1=Demonstrate adherence to instructed precautions during ADL tasks. 2=Patient will verbalize/demonstrate understanding of assistive devices/modifications for ADL. 3=Patient will improve strength/tolerance for activity to enable patient to perform ADL's. OT Education/Plan Problem List/Assessment Assessment: Decreased Activ Tolerance, Impaired Bed Mobility, Impaired I ADL's, Impaired Self-Care Skills Discharge Recommendations Plan/Recommendations: Continue POC Therapy Discharge Recommendati: Post Acute OT (Home health OT) Equpiment Recommendations-D/C: Extended Bath Bench, Rails on Tub/Shower, Extended Shower Sprayer, Liaison Engineer, JILLIAN Hose [place] Treatment Plan/Plan of Care Treatment,Training & Education: Yes Patient would benefit from OT for education, treatment and training to promote independence in ADL's, mobility, safety and/or upper extremity function for ADL's. Plan of Care: ADL Retraining, Caregiver Training, Functional Mobility, Group Exercise/Act as Ind, Orthotic Fitting/Training, UE Funct Exercise/Act Treatment Duration: Sep 06, 2019 Frequency: 5 times per week Estimated Hrs Per Day: .25 hour per day Agreement: Yes Rehab Potential: Fair Time/GCodes Start Time: 09:50 Stop Time: 10:08 Total Time Billed (hr/min): 18 Billed Treatment Time 1 ADL (18) INOCENCIA PLAZA OTR Aug 31, 2019 10:35
[2019-08-31 11:38] VITALS: BP 127/60
--- NOTE | 2019-08-31 11:38 | NUR ---
CM/SS spoke with patient in regards to a plan upon discharge. Plan: The patient verbalized that her plan was to return home with [facility] for Physical Therapy. A choice form was signed and completed. [facility] was contacted and information was sent. DME: The patient states that she already has a walker at home that is in good shape plus a back up walker. There are no other medical equipment needs at this time. Summary: The patient verbalized that she feels okay to go home with Home Health Physical therapy. The patient lives with her and states that she has everything she needs at home for discharge. No other needs at this time. Addendum: 08/31/19 at 1147 by JO LOPZE reviewed and approved
--- NOTE | 2019-08-31 11:50 | Physical Therapy Daily Note ---
PT Daily Note-Current Subjective Patient agrees to PT. She reports she feels "groggy" after taking IV morphine. Pain Numeric Pain Scale: 5-Moderate Pain Location: Left Location Body Site: Knee Pain Description: Acute Mental Status Patient Orientation: Normal For Age Transfers SCALE: Activities may be completed with or without assistive devices. 3-Auguytfrnr-rnsgszn completes the activity by him/herself with no assistance from a helper. 5-Set-up or Clean-up Assistance-helper sets up or cleans up; patient completes activity. [place] assists only prior to or following the activity. 4-Supervision or Touching Assistance-helper provides verbal cues and/or touching /steadying and/or contact guard assistance as patient completes activity. Assistance may be provided throughout the activity or intermittently. 3-Partial/Moderate Assistance-helper does LESS THAN HALF the effort. [place] lifts, holds or supports trunk or limbs, but provides less than half the effort. 2-Substantial/Maximal Assistance-helper does MORE THAN HALF the effort. [place] lifts or holds trunk or limbs and provides more than half the effort. 7-Qdbourmhl-jwwgdc does ALL the effort. Patient does none of the effort to complete the activity. Or, the assistance of 2 or more helpers is required for the patient to complete the activity. If activity was not attempted, code reason: 7-Patient Refused. 9-Not Applicable-not attempted and the patient did not perform the activity before the current illness, exacerbation or injury. 10-Not Attempted due to Environmental Limitations-(lack of equipment, weather restraints, etc.). 88-Not Attempted due to Medical Conditions or Safety Concerns. Roll Left to Right (QC): 6 Sit to Lying (QC): 6 Sit to Stand (QC): 6 Chair/Pwp-ee-Bpfsz Xfer(QC): 6 Bed to/from Chair: 6 Weight Bearing Left Lower Extremity: Left Weight Bearing/Tolerated Gait Training Does the Patient Walk?: Yes Distance: 275' Walk 10 feet (QC): 6 Walk 50 ft with 2 Turns(QC): 6 Walk 150 ft (QC): 6 Gait Assistive Device: FWW slow, reciprocal pattern Exercises Supine Ex: Ankle pumps, Quad Set, Heel Slides, Straight leg raise Supine Reps: 15 Seated Therapy Exercises: Long arc quads Seated Reps: 15 Treatments CPM 0-80 degrees with polar pack Assessment Patient tolerated treatment well and will dismiss to home on this date. PT Custodial Goals Custodial Goals PT Midwife Practitioner Goals Time Frame: Sep 05, 2019 Sit to Lying (QC): 5 Lying-Sitting on Side/Bed(QC): 5 Sit to Stand (QC): 5 Roll Left to Right (QC): 5 Chair/Ibn-tk-Orcwy Xfer(QC): 5 Distance: 50' Walk 10 feet (QC): 5 Walk 50ft with 2 Turns (QC): 5 Gait Assistive Device: FWW PT Plan Treatment/Plan Treatment Plan: Continue Plan of Care Treatment Plan: Bed Mobility, Education, Functional Activity Davis, Functional Strength, Gait, Safety, Therapeutic Exercise, Transfers Treatment Duration: Sep 05, 2019 Frequency: 11 times per week Estimated Hrs Per Day: .25 hour per day Patient and/or Family Agrees t: Yes Time/GCodes Time In: 855 Time Out: 918 Total Billed Treatment Time: 23 Total Billed Treatment 1 visit EX 14 min GT 9 min DEBBIE VELAZQUEZ PT Aug 31, 2019 11:50
--- NOTE | 2019-08-31 11:53 | NUR ---
IRF Evaluation Order received to evaluate patient for the ARU. Chart review complete and it appears patient is ambulating (275ft, FWW) and transferring with modified independence; therefore, patient does not require intensive therapies, at this time. Thank you for this referral.
[2019-08-31 13:55] VITALS: BP 127/60
--- NOTE | 2019-08-31 13:55 | NUR ---
EITAN YO demonstrates understanding of discharge instructions and accurately returns instructions upon questioning. Copy of Post-Discharge Instructions and Medication Discharge Instructions given to patient. EITAN YO is able to manage continuing needs after discharge. Patients belongings returned to patient. Skin dry and intact; no breakdown noted. Patient discharged from [facility] on 08/31/19 at 1355 . EITAN YO left floor via wheelchair, accompanied by staff and .
--- NOTE | 2019-08-31 14:13 | DISCHARGE SUMMARY ---
DATE OF SERVICE: DIAGNOSES: 1. Left knee primary osteoarthritis. 2. Hypertension. 3. Depression. PROCEDURE: Left total knee arthroplasty. SUMMARY: The patient is a 69-year-old female who underwent a left total knee arthroplasty on the day of admission. Postoperatively, she did well. At time of discharge, her wound was clean and dry. She has no calf tenderness. Negative Homans sign. She was tolerating her diet well and tolerating pain with oral pain medication. CONDITION AT DISCHARGE: Good. DISCHARGE DIET: Regular. FOLLOWUP: Follow up is in three weeks. Home physical therapy has been arranged. DISCHARGE MEDICATIONS: Home medications, aspirin and Percocet as needed for pain. Job ID: [id number] DocumentID: [id number] Dictated Date: 08/30/2019 18:37:02 Family Day Carer Date: 08/31/2019 14:12:49 Dictated By: MYRON JACOB MD
--- NOTE | 2019-08-31 14:55 | Physical Therapy Daily Note ---
PT Daily Note-Current Subjective Patient agrees to PT. Spouse present. Pain Numeric Pain Scale: 5-Moderate Pain Location: Left Location Body Site: Knee Pain Description: Acute Mental Status Patient Orientation: Normal For Age Transfers SCALE: Activities may be completed with or without assistive devices. 7-Oodyzlolnk-ccuiqph completes the activity by him/herself with no assistance from a helper. 5-Set-up or Clean-up Assistance-helper sets up or cleans up; patient completes activity. [place] assists only prior to or following the activity. 4-Supervision or Touching Assistance-helper provides verbal cues and/or touching/steadying and/or contact guard assistance as patient completes activity. Assistance may be provided throughout the activity or intermittently. 3-Partial/Moderate Assistance-helper does LESS THAN HALF the effort. [place] lifts, holds or supports trunk or limbs, but provides less than half the effort. 2-Substantial/Maximal Assistance-helper does MORE THAN HALF the effort. [place] lifts or holds trunk or limbs and provides more than half the effort. 5-Maltdbebe-eobyuc does ALL the effort. Patient does none of the effort to complete the activity. Or, the assistance of 2 or more helpers is required for the patient to complete the activity. If activity was not attempted, code reason: 7-Patient Refused. 9-Not Applicable-not attempted and the patient did not perform the activity before the current illness, exacerbation or injury. 10-Not Attempted due to Environmental Limitations-(lack of equipment, weather restraints, etc.). 88-Not Attempted due to Medical Conditions or Safety Concerns. Roll Left to Right (QC): 6 Sit to Lying (QC): 6 Sit to Stand (QC): 6 Chair/Jja-xe-Kbwat Xfer(QC): 6 Bed to/from Chair: 6 Weight Bearing Left Lower Extremity: Left Weight Bearing/Tolerated Gait Training Does the Patient Walk?: Yes Distance: 250' Walk 10 feet (QC): 6 Walk 50 ft with 2 Turns(QC): 6 Walk 150 ft (QC): 6 Walking 10ft/uneven surface-QC: 6 Gait Assistive Device: FWW slow reciprocal pattern Stair Training verbal review with patient voicing proper technique Exercises Supine Ex: Ankle pumps, Quad Set, Heel Slides, Straight leg raise Supine Reps: 15 Seated Therapy Exercises: Ankle pumps, Long arc quads Seated Reps: 15 Assessment Patient tolerated treatment plan and will dismiss to home with spouse and HEP issued prior to surgery. Home health to begin 09/03/19. PT Paver Installer Goals Paver Installer Goals PT Paver Installer Goals Time Frame: Sep 05, 2019 Sit to Lying (QC): 5 Lying-Sitting on Side/Bed(QC): 5 Sit to Stand (QC): 5 Roll Left to Right (QC): 5 Chair/Slw-eq-Lvnkw Xfer(QC): 5 Distance: 50' Walk 10 feet (QC): 5 Walk 50ft with 2 Turns (QC): 5 Gait Assistive Device: FWW PT Plan Treatment/Plan Treatment Plan: Discontinue PT, goals met Treatment Plan: Bed Mobility, Education, Functional Activity Davis, Functional Strength, Gait, Safety, Therapeutic Exercise, Transfers Treatment Duration: Sep 05, 2019 Frequency: 11 times per week Estimated Hrs Per Day: .25 hour per day Patient and/or Family Agrees t: Yes Time/GCodes Time In: 1255 Time Out: 1318 Total Billed Treatment Time: 23 Total Billed Treatment 1 visit EX 14 min GT 9 min DEBBIE VELAZQUEZ PT Aug 31, 2019 14:55
== END 2019-08-31 13:55 | disposition home health service (06) | DRG 470 ==
LOC: 4TH 05:56 → SURG 05:57 → 4TH 10:19
PROVIDERS: ADMIT Orthopaedic Surgery; ATTEND Orthopaedic Surgery
PROC: 0SRD0J9 Replacement of Left Knee Joint with Synthetic Substitute, Cemented, Open Approach (ICD-10-PCS; principal; 2019-08-29 07:41)
DX: M17.12 Unilateral primary osteoarthritis, left knee (principal); D62 Acute posthemorrhagic anemia; I10 Essential (primary) hypertension; R32 Unspecified urinary incontinence; F32.9 Major depressive disorder, single episode, unspecified; E78.00 Pure hypercholesterolemia, unspecified; I35.8 Other nonrheumatic aortic valve disorders; F41.9 Anxiety disorder, unspecified; Z79.82 Long term (current) use of aspirin; Z96.651 Presence of right artificial knee joint
CPT/HCPCS: 36415; 73560; 85014; 85018; 86850; 86900; 86901; 94664; 94760

== ENCOUNTER 2019-10-17 11:24 | Outpatient (RCR) | payer MEDICARE, MEDICAID | END 2019-10-17 11:29 | disposition home or self-care (01) | PROVIDERS: ATTEND Orthopaedic Surgery | DX: Z47.1 Aftercare following joint replacement surgery (principal); Z96.652 Presence of left artificial knee joint ==

== ENCOUNTER → 2019-11-05 | Outpatient (CLI) | payer MEDICARE, MEDICAID ==
--- NOTE | 2019-11-05 14:25 | Diagnostic Imaging Report ---
Indication: Six-month follow-up right breast nodule. Correlation is made with mammograms dating back to 11/24/2015. 2-D and 3-D bilateral diagnostic mammography was performed with CAD. Both breasts remain heterogeneously dense, limiting the sensitivity of mammography. The overall parenchymal pattern is stable. There are benign calcifications. No dominant mass is identified. Axillae are unremarkable. IMPRESSION: BI-RADS 0 Stable bilateral mammograms. Sonography interrogation 6:00 location right breast at the site of previously noted nodule is recommended and will be performed today. ACR BI-RADS Category 0: Incomplete. (Needs additional imaging evaluation). Result letter will be mailed to the patient. Note: At least 10% of breast cancer is not imaged by mammography. Dictated by: Dictated on workstation # [id number]
--- NOTE | 2019-11-05 15:38 | Diagnostic Imaging Report ---
INDICATION: Right breast nodule. Patient presents for 6 month follow-up. CORRELATION is made with prior right breast ultrasound from 04/20/2019. Hypoechoic nodule with calcification at the 6 o'clock location right breast is noted, 2 cm from the nipple. This measures 12 mm x 7 mm x 8 mm, stable when compared with prior exam. No new mass is identified. Area of hypoechogenicity at 10 o'clock location right breast most likely represents fibroglandular tissue. IMPRESSION: BI-RADS Category 2 Stable solid benign-appearing nodule at the 6 o'clock location of the right breast, 2 cm from the nipple. This shows 2-1/2 years of stability. Patient may return to routine annual screening mammography. Dictated by: Dictated on workstation # [id number]
== END ==
LOC: RAD 13:34
PROVIDERS: ATTEND Nurse Practitioner Family
DX: N63.25 Unspecified lump in the left breast, overlapping quadrants (principal)
CPT/HCPCS: 77066

== ENCOUNTER → 2020-04-01 | Outpatient (CLI) | payer MEDICARE, MEDICAID ==
[~2020-04-01] MED LIST changes: -TRAM50TA2 PO; +TRM50T PO
[2020-04-01 11:43] LABS: BASOPHILS % (AUTO) 1 % (0-10); EOSINOPHILS # (AUTO) 0.1 10^3/uL (0.0-0.3); EOSINOPHILS % (AUTO) 3 % (0-10); HEMATOCRIT 41 % (35-52); HEMOGLOBIN 13.3 G/DL (11.5-16.0); LYMPHOCYTES # (AUTO) 1.4 X 10^3 (1.0-4.0); LYMPHOCYTES % (AUTO) 37 % (12-44); MEAN CORPUSCULAR HEMOGLOBIN 27 PG (25-34); MEAN CORPUSCULAR HGB CONC 33 G/DL (32-36); MEAN CORPUSCULAR VOLUME 84 FL (80-99); MEAN PLATELET VOLUME 9.9 FL (7.4-10.4); MONOCYTES # (AUTO) 0.3 X 10^3 (0.0-1.0); MONOCYTES % (AUTO) 9 % (0-12); NEUTROPHILS # (AUTO) 1.9 X 10^3 (1.8-7.8); NEUTROPHILS % (AUTO) 50 % (42-75); PLATELET COUNT 174 10^3/uL (130-400); RED CELL DISTRIBUTION WIDTH 15.8 % (10.0-14.5); WHITE BLOOD COUNT 3.8 10^3/uL (4.3-11.0)
[2020-04-01 11:54] LABS: ALBUMIN 4.4 GM/DL (3.2-4.5); POTASSIUM 4.2 MMOL/L (3.6-5.0)
[2020-04-01 11:55] LABS: CALCIUM 9.5 MG/DL (8.5-10.1)
[2020-04-01 11:57] LABS: TOTAL PROTEIN 7.7 GM/DL (6.4-8.2)
[2020-04-01 11:58] LABS: BILIRUBIN,TOTAL 0.6 MG/DL (0.1-1.0)
[2020-04-01 12:00] LABS: CREATININE SERUM 1.04 MG/DL (0.60-1.30)
== END ==
LOC: LAB 11:25
PROVIDERS: ATTEND Family Medicine
DX: I10 Essential (primary) hypertension (principal); F32.0 Major depressive disorder, single episode, mild; E78.2 Mixed hyperlipidemia
CPT/HCPCS: 36415; 80053; 80061; 84443; 85025

== ENCOUNTER → 2020-11-04 | Outpatient (CLI) | payer MEDICARE, MEDICAID ==
[~2020-11-04] MED LIST changes: +ASPI-1238 PO; -ASPI-983 PO
--- NOTE | 2020-11-04 13:20 | Diagnostic Imaging Report ---
INDICATION: Postmenopausal. COMPARISON: None FINDINGS: The bone mineral density of hips and spine was measured. There are no prior studies for comparison. The total T score for the spine is 3.8. The total T score for the left hip is 0.4 and for the right hip 1.5. The T score for the left femoral neck is -0.4 and for the right femoral neck 0.9. All these values are within normal limits. AP Spine L1-L4: [BMD (g/cm2): 1.660] [T-Score: 3.8] [Z-Score: 4.3] [BMD Previous: NA] [BMD % Change: NA] LT Hip Neck: [BMD (g/cm2): 0.988] [T-Score: -0.4] [Z-Score: 0.5] LT Hip Total: [BMD (g/cm2):1.064] [T-Score:0.4] [Z-Score: 1.0] [BMD Previous: NA] [BMD % Change: NA] RT Hip Neck: [BMD (g/cm2):1.163] [T-Score:0.9] [Z-Score:1.8] RT Hip Total: [BMD (g/cm2):1.200] [T-score:1.5] [Z-Score:NA2.1] [BMD Previous:NA] [BMD % Change:NA] *Indicates significant change from prior examination based on 95% confidence level. World Health Organization criteria for BMD interpretation classify patients as Normal (T-score at or above -1.0), Osteopenic (T-score between -1.0 and -2.5) or Osteoporotic (T-score at or below -2.5). LIMITATIONS AND MODIFICATION: None. FRACTURE RISK (FRAX SCORE): The ten year probability of (%): Major Osteoporotic Fracture: [NA] Hip Fracture: [NA] IMPRESSION: 1. The bone mineral density of the spine, the hips and the femoral necks is within normal limits. 2. 3. See below National Osteoporosis Foundation guidelines on when to potentially initiate pharmacologic therapy. Based on the National Osteoporosis Foundation Guidelines, pharmacologic treatment should be initiated in any of the following, unless clinical conditions suggest otherwise: * Any patient with prior fragility fracture of the hip or vertebrae. A spine fracture indicates 5X risk for subsequent spine fracture and 2X risk for subsequent hip fracture. * Osteoporosis (T-score <-2.5). * Postmenopausal women and men age 50 and older with low bone mass/osteopenia (T-score between -1.0 and -2.5) by DXA and 10-year major osteoporotic fracture greater than 20% or a 10-year probability of hip fracture greater than 3%. These fracture risks are supplied above in the FRAX score, if applicable. * Clinician judgement and/or patient preferences may indicate treatment for people with 10-year fracture probabilities above or below these levels. Dictated by: Dictated on workstation # [id number]
--- NOTE | 2020-11-04 21:18 | Diagnostic Imaging Report ---
EXAM: Digital mammogram bilateral screening COMPARISON: This study was compared to the prior exams of 11/05/2019, 04/05/2018 and 02/21/2017. At this time, there are no current complaints. The current study was also evaluated with a Computer Aided Detection (CAD) system. FINDINGS: The fibroglandular tissue in both breasts is dense. This does limit the sensitivity of this exam. Overall, there does not appear to have been any significant change when compared to the prior study. No primary or secondary sign of malignancy is noted. IMPRESSION: There is no radiographic evidence for malignancy. ACR BI-RADS Category 1: Negative. Result letter will be mailed to the patient. Note: At least 10% of breast cancer is not imaged by mammography. Dictated by: Dictated on workstation # [id number]
== END ==
LOC: RAD 10:30
PROVIDERS: ATTEND Family Medicine
DX: Z12.31 Encounter for screening mammogram for malignant neoplasm of breast (principal); E55.9 Vitamin D deficiency, unspecified; Z78.0 Asymptomatic menopausal state
CPT/HCPCS: 77063; 77067; 77080

== ENCOUNTER 2021-07-03 05:35 | Outpatient (CLI) | payer MEDICARE, MEDICAID ==
[~2021-07-03] VITALS: Ht 162.6 cm; Wt 111.8 kg
[~2021-07-03 05:35] MED LIST changes: -LISI-552 PO; +LISI20TA26 PO
== END 2021-07-03 10:50 | disposition home or self-care (01) ==
LOC: PREOP 05:35
PROVIDERS: ATTEND Specialist
DX: Z01.818 Encounter for other preprocedural examination (principal)

== ENCOUNTER 2021-07-10 05:55 | Day surgery (SDC) | payer MEDICARE, MEDICAID ==
[~2021-07-10] VITALS: Ht 162 cm; Wt 111.8 kg
[2021-07-10] MEDS ORDERED: acetaZOLAMIDE ER 500 MG CAP (DIAMOX SEQUELS) PO ONE (06:15)
[2021-07-10] MEDS ORDERED: TIMOLOL MALEATE 0.5% 5 ML (TIMOPTIC) BTL OU PRN (06:15)
[2021-07-10] MEDS ORDERED: MOXIFLOXACIN OPHTH SOLN 5 MG/ML 0.3 ML SYRINGE OP ONE (06:15)
[2021-07-10] MEDS ORDERED: LIDOCAINE PF 1% 2 ML VIAL IR PRN (06:15)
[2021-07-10] MEDS ORDERED: POVIDONE (BETADINE) OPHTH SOLN 5% 30 ML OP ONE (06:15)
[2021-07-10 06:21] VITALS: BP 165/86
[2021-07-10] MEDS: TETRACAINE 0.5% OPHTH SOLN 4 ML BTL (SINGLE DOSE ONLY) OU PRN ×4 (06:21→06:42)
[2021-07-10] MEDS: TROPICAMIDE 1% OPH SOLN (MYDRIACYL) 15 ML BTL OP SCH ×3 (06:28→06:39)
[2021-07-10] MEDS: PHENYLEPHRINE 10% OPHTH (NEO-SYN) 5 ML BTL OU SCH ×3 (06:28→06:40)
[2021-07-10] MEDS ORDERED: MIDAZOLAM 2 MG/2 ML (VERSED) VIAL ONE (07:05)
--- NOTE | 2021-07-10 07:20 | Ophthalmologist Pre-Op Note ---
Pre-Operative Progress Note H&P Reviewed The H&P was reviewed, patient examined and no changes noted. Date H&P Reviewed: Jul 10, 2021 Time H&P Reviewed: 07:20 Pre-Op Dx Cataract, Left Eye TASHIA DANG MD Jul 10, 2021 07:20
--- NOTE | 2021-07-10 07:44 | Ophthalmology Operative Report ---
Cataract removal/placement IOL PREOPERATIVE DIAGNOSIS: Cataract Left Eye POSTOPERATIVE DIAGNOSIS: Cataract Left Eye PROCEDURE: Cataract removal and placement of posterior chamber implant, left eye SURGEON: Otoniel Dang ANESTHESIA: Topical with sedation COMPLICATIONS: None ESTIMATED BLOOD LOSS: Minimal DESCRIPTION OF PROCEDURE: After proper informed consent was obtained, the patient, a 70 female, was taken to the Operating Room and the left eye was anesthetized with tetracaine. The left eye was then prepped and draped in the usual manner. A wire lid speculum was placed. A paracentesis was made at the left hand position. Preservative free lidocaine was injected into the anterior chamber followed by viscoelastic. A clear corneal incision was made in the temporal position. A capsulorrhexis was preformed and the central nuclear and cortical material were removed. The posterior capsule was polished and an Rustam 21.0 AU00T0 was placed into the capsular bag. The residual viscoelastic was aspirated and balanced saline solution was injected into the anterior chamber. Moxifloxacin was injected into the anterior chamber. The wound was checked and found to be water tight. The patient tolerated the procedure well without complications. OTONIEL DANG MD Jul 10, 2021 07:44
[2021-07-10 07:49] VITALS: BP 172/88
--- NOTE | 2021-07-10 10:52 | Anesthesia-General Post-Op ---
MAC Patient Condition Mental Status/LOC: Same as Preop Cardiovascular: Satisfactory Nausea/Vomiting: Absent Respiratory: Satisfactory Pain: Controlled Complications: Absent Post Op Complications Complications None Follow Up Care/Instructions Patient Instructions None needed. Anesthesiology Discharge Order Discharge Order Patient is doing well, no complaints, stable vital signs, no apparent adverse anesthesia problems. No complications reported per nursing. MACK AGUIAR CRNA Jul 10, 2021 10:52
== END 2021-07-10 07:52 ==
LOC: SDC 05:55
PROVIDERS: ATTEND Specialist
DX: H25.12 Age-related nuclear cataract, left eye (principal); I10 Essential (primary) hypertension; F32.9 Major depressive disorder, single episode, unspecified; E78.00 Pure hypercholesterolemia, unspecified; Z79.899 Other long term (current) drug therapy
CPT/HCPCS: 66984; V2632

== ENCOUNTER 2021-07-20 07:16 | Outpatient (CLI) | payer MEDICARE, MEDICAID ==
[2021-07-20] MEDS ORDERED: SENN-75 PO (10:24)
[2021-07-20] MEDS ORDERED: CHOL200014 PO (10:24)
== END 2021-07-20 10:24 ==
LOC: PREOP 07:16
PROVIDERS: ATTEND Specialist
DX: Z01.818 Encounter for other preprocedural examination (principal)

== ENCOUNTER 2021-07-23 09:15 | Outpatient (CLI) | payer MEDICARE, MEDICAID ==
[~2021-07-23] VITALS: Ht 162.6 cm; Wt 111.8 kg
[~2021-07-23 09:15] MED LIST changes: +CHOL200014 PO; +SENN-75 PO
== END 2021-07-23 15:54 ==
LOC: PREOP 09:15
PROVIDERS: ATTEND Obstetrics & Gynecology
DX: Z01.818 Encounter for other preprocedural examination (principal)

== ENCOUNTER 2021-07-31 05:49 | Day surgery (SDC) | payer MEDICARE, MEDICAID ==
[2021-07-31] VITALS (11 sets, daily range): BP systolic 99–184; BP diastolic 55–92
[~2021-07-31] VITALS: Ht 162.6 cm; Wt 113.6 kg
[2021-07-31] MEDS ORDERED: ceFAZolin INJECTION 1,000 MG in WATER (STERILE) FOR INJECTION 10 ML IV ONE (06:30)
[2021-07-31] MEDS: LACTATED RINGERS 1,000 ML IV PRN ×2 (06:39→08:47)
[2021-07-31] MEDS ORDERED: ESTRADIOL VAGINAL CREAM 42.5 GM (ESTRACE) VG ONE (07:11)
[2021-07-31 07:17] LABS: BASOPHILS % (AUTO) 1 % (0-10); EOSINOPHILS # (AUTO) 0.2 10^3/uL (0.0-0.3); EOSINOPHILS % (AUTO) 4 % (0-10); HEMATOCRIT 41 % (35-52); HEMOGLOBIN 13.1 g/dL (11.5-16.0); LYMPHOCYTES # (AUTO) 1.7 10^3/uL (1.0-4.0); LYMPHOCYTES % (AUTO) 31 % (12-44); MEAN CORPUSCULAR HEMOGLOBIN 28 pg (25-34); MEAN CORPUSCULAR HGB CONC 32 g/dL (32-36); MEAN CORPUSCULAR VOLUME 88 fL (80-99); MEAN PLATELET VOLUME 10.3 fL (9.0-12.2); MONOCYTES # (AUTO) 0.5 10^3/uL (0.0-1.0); MONOCYTES % (AUTO) 9 % (0-12); NEUTROPHILS % (AUTO) 56 % (42-75); PLATELET COUNT 164 10^3/uL (130-400); WHITE BLOOD COUNT 5.4 10^3/uL (4.3-11.0)
[2021-07-31] MEDS ORDERED: LIDOCAINE PF 2% 5 ML (XYLOCAINE) VIAL ONE (07:20)
[2021-07-31] MEDS ORDERED: fentaNYL INJ 100 MCG/2 ML AMP ONE ×2 (07:20→08:07)
[2021-07-31] MEDS ORDERED: MIDAZOLAM 2 MG/2 ML (VERSED) VIAL ONE (07:20)
[2021-07-31] MEDS ORDERED: ROCURONIUM 10 MG/ML 5 ML SYRINGE IV ONE (07:20)
[2021-07-31] MEDS ORDERED: SEVOFLURANE (ULTANE) 15 ML INHAL SOLN ONE ×2 (07:20→08:44)
[2021-07-31] MEDS ORDERED: proPOfol 200 MG/20 ML (DIPRIVAN) VIAL IV ONE (07:20)
[2021-07-31] MEDS ORDERED: ONDANSETRON 4 MG/2 ML (SDV) Z0FRAN ONE ×2 (07:20→08:46)
--- NOTE | 2021-07-31 07:31 | Progress Note-Pre Operative ---
Pre-Operative Progress Note H&P Reviewed The H&P was reviewed, patient examined and no changes noted. Date Seen by Provider: Jul 31, 2021 Time Seen by Provider: 07:31 Date H&P Reviewed: Jul 31, 2021 Time H&P Reviewed: 07:31 Pre-Operative Diagnosis: Vaginal prolapse/THA/leukoplakia of vulva REG FALLON MD Jul 31, 2021 07:31
--- NOTE | 2021-07-31 07:32 | Progress Note-Post Operative ---
Post-Operative Progess Note Surgeon (s)/Sound Equipment Mechanic (s) Surgeon REG FALLON MD Sound Equipment Mechanic: Abigail Fallon Pre-Operative Diagnosis Vaginal prolapse/THA/leukoplakia of vulva Post-Operative Diagnosis Same with pathology pending Procedure & Operative Findings Date of Procedure 07/31/21 Procedure Performed/Findings Anterior and posterior vaginal repairs with enterocele repair, Biopsy leukoplakia lesion of the vulva, Pubovaginal sling and cystoscopy done by Dr. Benral Anesthesia Type GETA Estimated Blood Loss Estimated blood loss (mL): 200cc Specimens/Packing Specimens Removed Labial biopsy Left labia minora, And biopsy of posterior fourchette leukoplakia lesions Packing: Kerlix in the vagina REG FALLON MD Jul 31, 2021 07:32
[2021-07-31] MEDS ORDERED: OXYC1TAB87 PO (07:36)
[2021-07-31] MEDS ORDERED: IBUP-1780 PO (07:36)
[2021-07-31] MEDS ORDERED: DOCU-143 PO (07:36)
--- NOTE | 2021-07-31 07:38 | Discharge Inst-Surgical ---
Discharge Inst-Surgical Depart Medication/Instructions New, Converted or Re-Newed RX: Transmitted to Pharmacy Consults/Follow Up Patient Instructions: As directed Orders & Referrals Follow Up Appt: Call to make follow up appt. for patient in 4 weeks. Activity: Rest for 24 hours, than as tolerated. Diet: As tolerated Shower or tub bathe as desired. No driving for 24 hours, no alcoholic beverages for 24 hours, and nothing per vagina (no tampons, douching, or intercourse) for 4 weeks. Patient to return to the clinic as soon as possible for: Temperature greater than 101F, Severe Pain, Foul discharge from incision or vagina, Excessive Bleeding (more than a period). Activity Activity as Tolerated: No Diet Discharge Diet: No Restrictions REG FALLON MD Jul 31, 2021 07:38
[2021-07-31] MEDS ORDERED: ONDANSETRON 4 MG/2 ML (SDV) Z0FRAN IVP PRN ×3 (07:45→09:00)
[2021-07-31] MEDS ORDERED: BENZOCAINE/MENTHOL (DERMOPLAST) 56 ML CAN TP PRN (07:45)
[2021-07-31] MEDS ORDERED: ESTROGENS CONJ INJECTION 25 MG in WATER (STERILE) FOR INJECTION 5 ML IV ONE (07:45)
[2021-07-31] MEDS ORDERED: fentaNYL INJ 100 MCG/2 ML AMP IVP PRN (07:45)
[2021-07-31] MEDS ORDERED: FAMOTIDINE 20MG/2ML IV (PEPCID) ONE (08:47)
--- NOTE | 2021-07-31 08:47 | Progress Note-Post Operative ---
Post-Operative Progess Note Surgeon (s)/Physical Education Teacher (s) Surgeon MAEGAN BACK MD Physical Education Teacher: MD LEEANNE Pre-Operative Diagnosis THA Post-Operative Diagnosis SAME Procedure & Operative Findings Date of Procedure 07/31/21 Procedure Performed/Findings PVS AND CYSTO Anesthesia Type GENERAL Estimated Blood Loss Estimated blood loss (mL): NEGLIGIBLE Specimens/Packing Specimens Removed NONE Packing: Kerlix in the vagina MAEGAN BACK MD Jul 31, 2021 08:47
[2021-07-31] MEDS ORDERED: morphine INJ 10 MG/ML 1ML (SYR OR VIAL) IVP ONE (09:00)
[2021-07-31] MEDS ORDERED: MEPERIDINE (DEMEROL) INJ 50 MG/ML IVP ONE (09:00)
--- NOTE | 2021-07-31 09:00 | Anesthesia-General Post-Op ---
General Patient Condition Mental Status/LOC: Same as Preop Cardiovascular: Satisfactory Nausea/Vomiting: Absent Respiratory: Satisfactory Pain: Controlled Complications: Absent Post Op Complications Complications None Follow Up Care/Instructions Patient Instructions None needed. Anesthesia/Patient Condition Patient Condition Patient is doing well, no complaints, stable vital signs, no apparent adverse anesthesia problems. No complications reported per nursing. LEONIDES JENSEN CRNA Jul 31, 2021 09:00
[2021-07-31] MEDS ORDERED: morphine INJ 10 MG/ML 1ML (SYR OR VIAL) ONE (09:13)
[2021-07-31] MEDS ORDERED: KETOROLAC 30 MG/ML VIAL ONE (09:13)
[2021-07-31] MEDS: KETOROLAC 30 MG/ML VIAL IVP SCH ×3 (09:36→23:31)
[2021-07-31] MEDS: DOCUSATE SODIUM 100 MG (COLACE) CAP PO SCH ×2 (13:01→20:36)
[2021-07-31] MEDS: oxyCODONE/APAP 5/325MG (PERCOCET 5) TABLET PO PRN ×2 (13:01→20:36)
--- NOTE | 2021-07-31 13:54 | OPERATIVE REPORT ---
DATE OF SERVICE: 07/31/2021 PREOPERATIVE DIAGNOSIS: On my part, stress urinary incontinence. POSTOPERATIVE DIAGNOSIS: On my part, stress urinary incontinence. OPERATION PERFORMED: Pubovaginal sling and cystoscopy. SURGEON: Maegan Back MD. TOOLROOM CLERK: Luis Maza MD ANESTHESIA: General. COMPLICATIONS: None. DESCRIPTION OF PROCEDURE: After Dr. Maza performed the first part of his surgery that he will dictate, we inserted a Martines catheter draining clear urine. I passed the Desara sling device on both sides using the described technique. The sling was sitting nicely under the mid urethra with no tension, no twist and passage of a curved hemostat easily between it and the underlying tissue. The Martines catheter was removed. Cystoscopy was performed to confirm the integrity of the bladder, urethra, ureteral orifices in the presence of the sling under the mid urethra and no foreign bodies. I left the bladder half full, removed the cystoscope, performed a manual Valsalva maneuver that was negative. I went ahead and reinserted the Martines catheter draining clear fluid. Estimated blood loss on my part negligible and Dr. Maza proceeded with rest of his surgery that he will dictate. Job ID: [id number] DocumentID: [id number] Dictated Date: 07/31/2021 08:49:45 Distance Learning Program Coordinator Date: 07/31/2021 13:53:14 Dictated By: MAEGAN BACK MD
--- NOTE | 2021-07-31 14:05 | OPERATIVE REPORT ---
DATE OF SERVICE: 07/31/2021 PREOPERATIVE DIAGNOSES: Vaginal prolapse and stress urinary incontinence as well as labial leukoplakia. POSTOPERATIVE DIAGNOSES: Vaginal prolapse and stress urinary incontinence as well as labial leukoplakia. OPERATIVE PROCEDURE: Anterior and posterior vaginal repairs with enterocele repair as well as pubovaginal sling and cystoscopy was performed by Dr. Bernal. I also did a biopsy of the left labia minora and of the posterior fourchette and the areas of leukoplakia. OPERATIVE DESCRIPTION: With the patient in the supine position under satisfactory general anesthesia, she was repositioned in dorsal lithotomy position in the Sinan stirrups and prepped and draped in the usual fashion for vaginal surgery. Weighted speculum placed in posterior fornix of vagina. The anterior vaginal wall was grasped with two Pablito clamps. Vaginal wall was opened in the midline with Metzenbaum scissors. Dissection was carried over to the pubic rami bilaterally the vaginal wall from the bladder wall. Sutures of 2-0 Vicryl were used to restore the pelvic support ring and the endopelvic fascia together in the midline and plicated in the bladder wall at the same time. Dr. Bernal assumed care of the patient at this point for the pubovaginal sling and cystoscopy. I remained to assist. On completion of Dr. Bernal's portion of the procedure, I resumed care of the patient, resected the redundant anterior vaginal muscularis mucosa and then closed the vaginal wall with a running locked suture of 3-0 Vicryl Rapide. Good support was evident. Dr. Bernal left the Martines catheter to dependent drainage and it was draining clear yellow urine. Hemostasis was complete. Posterior repair was affected by placing Pablito clamps on the perineum and the hymenal ring at 5 and 7 o'clock position. An inverted triangle of skin was removed from the perineal body and upright triangle from the posterior vaginal floor. There was an area of leukoplakia on the perineal body/posterior fourchette. This area was dissected free and apical portion of tissue was sent to pathology for permanent section. There was another area of leukoplakia at the inferior margin of the left labia minora. This was grasped, elevated and resected sharply and sent to pathology, labeled appropriately for a biopsy of the left labia minora as well. Attention was then returned to the posterior repair. The rectovaginal space was entered sharply and dissected bluntly to the apex of the vagina. There was a small enterocele that was reduced and plicated with 2-0 Vicryl pursestring suture. Additional sutures of 2-0 Vicryl were used to obliterate the rectovaginal space and then additional sutures still were used to restore the perineal body. Redundant posterior vaginal muscularis mucosa was removed sharply. Vaginal wall was closed with a running locked suture of 3-0 Vicryl Rapide, that closure was continued past the hymenal ring down on the perineal body then back up subcutaneous to the hymenal ring where the suture was tied. Digital rectal exam confirmed no stricture or stenosis of the rectum, no sutures into or through the rectal mucosa. Both biopsy sites on the labia minora and on the posterior fourchette were hemostatic and were just left healed by primary intention. Sponge and needle counts were correct. Blood loss was around 200 mL. The patient tolerated the procedure well and was uneventfully awakened from her general anesthesia and transferred to recovery room in stable condition. Job ID: [id number] DocumentID: [id number] Dictated Date: 07/31/2021 08:50:03 Crown Blocker Date: 07/31/2021 14:05:01 Dictated By: REG FALLON MD
[2021-07-31] MEDS: D5 LR IV SOLUTION 1,000 ML IV SCH ×3 (15:18→23:32)
[2021-08-01 01:00] VITALS: BP 136/65
[2021-08-01 05:00] VITALS: BP 133/73
[2021-08-01] MEDS: oxyCODONE/APAP 5/325MG (PERCOCET 5) TABLET PO PRN (05:48)
[2021-08-01] MEDS: KETOROLAC 30 MG/ML VIAL IVP SCH (05:48)
[2021-08-01 08:53] VITALS: BP 136/65
[2021-08-01] MEDS: DOCUSATE SODIUM 100 MG (COLACE) CAP PO SCH (08:55)
[2021-08-01] MEDS ORDERED: DOCUSATE SODIUM 100 MG (COLACE) CAP PO SCH (09:00)
[2021-08-01] MEDS ORDERED: CIPR-225 PO (12:26)
--- NOTE | 2021-08-01 13:15 | Progress Note - Urology ---
Progress Note-Urology Progress Notes/Assess & Plan Progress/Assessment & Plan RECOVERED WELL. VOIDED 400CC EASILY. FEELS EMPTYING WELL. PVR 29CC. DRY. HAPPY. HOME WITH INSTRUCTIONS. Final Diagnosis INCONTINENCE (RESOLVED) MAEGAN BACK MD Aug 01, 2021 13:14
[2021-08-05] MEDS ORDERED: IBUPROFEN 800 MG (MOTRIN) TAB PO SCH (12:00)
== END 2021-08-01 13:10 | disposition home or self-care (01) ==
LOC: SDC 05:49 → WS 10:15 → SDC 08-01 13:10
PROVIDERS: ATTEND Obstetrics & Gynecology
DX: I10 Essential (primary) hypertension (principal)
CPT/HCPCS: 85025; 87081; 94664; C1771; 36415

== ENCOUNTER → 2021-12-08 | Outpatient (CLI) | payer MEDICARE, MEDICAID ==
[~2021-12-08] MED LIST changes: +CIPR-225 PO; +DOCU-143 PO; +IBUP-1780 PO
--- NOTE | 2021-12-08 14:04 | Diagnostic Imaging Report ---
INDICATION: Routine screening. COMPARISON: 11/04/2020 and 11/05/2019. TECHNIQUE: 2D and 3D bilateral screening mammography was performed with CAD. FINDINGS: Both breasts are heterogeneously dense, limiting the sensitivity of mammography. The parenchymal pattern appears stable. No spiculated mass or malignant-appearing microcalcifications are seen. The axillae are unremarkable. IMPRESSION: No mammographic features suspicious for malignancy are identified. ACR BI-RADS Category 1: Negative. Result letter will be mailed to the patient. Note: At least 10% of breast cancer is not imaged by mammography. Dictated by: Dictated on workstation # [id number]
== END ==
LOC: RAD 09:30
PROVIDERS: ATTEND Nurse Practitioner Family
DX: Z12.31 Encounter for screening mammogram for malignant neoplasm of breast (principal)
CPT/HCPCS: 77063; 77067

== ENCOUNTER → 2023-01-03 | Outpatient (CLI) | payer MEDICARE, MEDICAID ==
[~2023-01-03] MED LIST changes: -CHOL200014 PO; +CHOL200052 PO
--- NOTE | 2023-01-03 13:05 | Diagnostic Imaging Report ---
INDICATION: Routine screening. COMPARISON: 12/08/2021 and 11/04/2020. TECHNIQUE: 2D and 3D bilateral screening mammography was performed with CAD. FINDINGS: Both breasts are heterogeneously dense, limiting the sensitivity of mammography. A nodular density in the lower inner right breast appears stable. No new mass or malignant-appearing microcalcifications are seen. The axillae are unremarkable. IMPRESSION: No mammographic features suspicious for malignancy are identified. ACR BI-RADS Category 2: Benign findings. Result letter will be mailed to the patient. Note: At least 10% of breast cancer is not imaged by mammography. Dictated by: Dictated on workstation # [id number]
== END ==
LOC: RAD 10:31
PROVIDERS: ATTEND Family Medicine
DX: Z12.31 Encounter for screening mammogram for malignant neoplasm of breast (principal)
CPT/HCPCS: 77063; 77067